=== PATIENT | male | born 1935 | race Caucasian/White ===

== ENCOUNTER → 2017-02-05 | Outpatient (CLI) | payer OTHER ==
[~2017-02-05] MED LIST: GLIM4TAB42 PO; LOVA20TA4 PO; METF-312 PO
[2017-02-05 07:53] LABS: Basophils # (auto) 0 uL; Basophils % (auto) 0.7 % (0.0-2.0); Eosinophils # (auto) 0.6 uL; Eosinophils % (auto) 10.2 % (0.0-7.0); Hematocrit 41.5 % (41.0-53.0); Hemoglobin 13.7 g/dL (13.5-17.5); Lymphocytes # (auto) 1.5 uL; Lymphocytes % (auto) 26.5 % (10.0-50.0); Mean Corpuscular Hemoglobin 30.7 pg (28.0-32.0); Mean Corpuscular Volume 93.2 fL (80.0-100.0); Mean Platelet Volume 8.6 fL (7.4-10.4); Monocytes # (auto) 0.5 uL; Monocytes % (auto) 8.6 % (0.0-12.0); Platelet Count (auto) 209 10^3/uL (140-450); Red Cell Distribution Width 13.2 % (11.6-16.0); White Blood Cell 5.6 10^3/uL (4.4-10.8)
[2017-02-05 08:26] LABS: Albumin 4.1 g/dL (3.4-5.0); Bilirubin, Total 0.7 mg/dL (0.2-1.0); Calcium 8.8 mg/dL (8.5-10.1); Potassium 4.6 mmol/L (3.5-5.1); Total Protein 7.5 g/dL (6.4-8.2)
== END | disposition home or self-care (01) ==
LOC: LAB 06:50
PROVIDERS: ATTEND Urology
DX: C61 Malignant neoplasm of prostate (principal); R35.1 Nocturia
CPT/HCPCS: 36415; 80053; 83615; 84153; 85025

== ENCOUNTER 2017-06-20 11:29 | Emergency (ER) | payer OTHER ==
[~2017-06-20] VITALS: Ht 167.6 cm; Wt 70.8 kg
[~2017-06-20 11:29] MED LIST changes: -METF-312 PO; +METF-370 PO
[2017-06-20 11:36] VITALS: BP 121/74
== END 2017-06-20 13:06 | disposition home or self-care (01) ==
LOC: ER 11:29
DX: S82.102A Unspecified fracture of upper end of left tibia, initial encounter for closed fracture (principal); E11.9 Type 2 diabetes mellitus without complications; E78.5 Hyperlipidemia, unspecified; W01.0XXA Fall on same level from slipping, tripping and stumbling without subsequent striking against object, initial encounter; Y93.89 Activity, other specified; Y99.8 Other external cause status; Y92.89 Other specified places as the place of occurrence of the external cause
CPT/HCPCS: 29505; 93971

== ENCOUNTER → 2017-08-26 | Outpatient (CLI) | payer OTHER ==
[2017-08-26 11:42] LABS: Basophils # (auto) 0 uL; Basophils % (auto) 0.8 % (0.0-2.0); Eosinophils # (auto) 0.5 uL; Eosinophils % (auto) 7.8 % (0.0-7.0); Hematocrit 38.5 % (41.0-53.0); Hemoglobin 12.9 g/dL (13.5-17.5); Lymphocytes # (auto) 1.3 uL; Lymphocytes % (auto) 21.6 % (10.0-50.0); Mean Corpuscular Hemoglobin 31.8 pg (28.0-32.0); Mean Corpuscular Hgb Conc. 33.6 g/dL (32.0-36.0); Mean Corpuscular Volume 94.8 fL (80.0-100.0); Mean Platelet Volume 7.8 fL (6.9-10.8); Monocytes # (auto) 0.5 uL; Monocytes % (auto) 7.7 % (0.0-12.0); Neutrophils # (auto) 3.7 uL; Neutrophils % (auto) 62.1 % (37.0-80.0); Nucleated Red Blood Cells % 0.1 %; Platelet Count (auto) 192 10^3/uL (140-450); Red Cell Distribution Width 12.9 % (11.8-14.3); White Blood Cell 5.9 10^3/uL (4.4-10.8)
[2017-08-26 12:05] LABS: BUN/Creatinine Ratio 18.9; Bilirubin, Total 0.4 mg/dL (0.2-1.0); Calcium 9.2 mg/dL (8.5-10.1); Potassium 4.2 mmol/L (3.5-5.1); Total Protein 7.3 g/dL (6.4-8.2)
== END | disposition home or self-care (01) ==
LOC: LAB 11:19
PROVIDERS: ATTEND Urology
DX: C61 Malignant neoplasm of prostate (principal); R53.81 Other malaise
CPT/HCPCS: 36415; 80053; 83615; 84153; 85025

== ENCOUNTER → 2017-11-11 | Outpatient (CLI) | payer OTHER ==
[2017-11-11 08:06] LABS: Basophils # (auto) 0 uL; Basophils % (auto) 0.7 % (0.0-2.0); Eosinophils # (auto) 0.3 uL; Eosinophils % (auto) 5.2 % (0.0-7.0); Hematocrit 40.6 % (41.0-53.0); Lymphocytes # (auto) 1.2 uL; Lymphocytes % (auto) 20.7 % (10.0-50.0); Mean Corpuscular Hemoglobin 32.3 pg (28.0-32.0); Mean Corpuscular Hgb Conc. 34.5 g/dL (32.0-36.0); Mean Corpuscular Volume 93.8 fL (80.0-100.0); Monocytes # (auto) 0.6 uL; Monocytes % (auto) 9.4 % (0.0-12.0); Neutrophils # (auto) 3.8 uL; Nucleated Red Blood Cells % 0.1 %; Platelet Count (auto) 197 10^3/uL (140-450); Red Blood Cells 4.33 10^6/uL (4.5-5.90); White Blood Cell 5.9 10^3/uL (4.4-10.8)
[2017-11-11 08:29] LABS: Albumin 3.9 g/dL (3.4-5.0); BUN/Creatinine Ratio 16.1; Bilirubin, Total 0.6 mg/dL (0.2-1.0); Calcium 9.2 mg/dL (8.5-10.1); Potassium 4.2 mmol/L (3.5-5.1); Total Protein 7.5 g/dL (6.4-8.2)
== END | disposition home or self-care (01) ==
LOC: LAB 07:25
PROVIDERS: ATTEND Physician Assistant
DX: C61 Malignant neoplasm of prostate (principal); I10 Essential (primary) hypertension; E11.9 Type 2 diabetes mellitus without complications; E78.2 Mixed hyperlipidemia
CPT/HCPCS: 36415; 80053; 80061; 83036; 84153; 85025

== ENCOUNTER → 2018-02-04 | Outpatient (CLI) | payer OTHER ==
[2018-02-04 08:30] LABS: Basophils # (auto) 0.1 uL; Basophils % (auto) 0.9 % (0.0-2.0); Eosinophils # (auto) 0.3 uL; Eosinophils % (auto) 5.7 % (0.0-7.0); Hematocrit 38.9 % (41.0-53.0); Hemoglobin 13.1 g/dL (13.5-17.5); Lymphocytes # (auto) 1.5 uL; Lymphocytes % (auto) 26.9 % (10.0-50.0); Mean Corpuscular Hemoglobin 31.7 pg (28.0-32.0); Mean Corpuscular Hgb Conc. 33.8 g/dL (32.0-36.0); Monocytes # (auto) 0.5 uL; Neutrophils # (auto) 3.3 uL; Neutrophils % (auto) 58.5 % (37.0-80.0); Platelet Count (auto) 183 10^3/uL (140-450); Red Blood Cells 4.13 10^6/uL (4.5-5.90); Red Cell Distribution Width 12.8 % (11.8-14.3); White Blood Cell 5.7 10^3/uL (4.4-10.8)
[2018-02-04 10:08] LABS: Albumin 3.8 g/dL (3.4-5.0); Calcium 9.1 mg/dL (8.5-10.1); Potassium 4.2 mmol/L (3.5-5.1)
[2018-02-04 10:11] LABS: BUN/Creatinine Ratio 20.2
[2018-02-04 10:24] LABS: Bilirubin, Total 0.8 mg/dL (0.2-1.0)
== END | disposition home or self-care (01) ==
LOC: LAB 08:10
PROVIDERS: ATTEND Internal Medicine
DX: C61 Malignant neoplasm of prostate (principal); R35.1 Nocturia; I10 Essential (primary) hypertension; E11.9 Type 2 diabetes mellitus without complications
CPT/HCPCS: 36415; 80053; 83615; 84153; 85025

== ENCOUNTER → 2018-08-06 | Outpatient (CLI) | payer OTHER ==
[2018-08-06 08:26] LABS: Basophils # (auto) 0 uL; Basophils % (auto) 0.8 % (0.0-2.0); Eosinophils # (auto) 0.4 uL; Hematocrit 40.1 % (41.0-53.0); Hemoglobin 13.5 g/dL (13.5-17.5); Lymphocytes # (auto) 1.1 uL; Lymphocytes % (auto) 21.3 % (10.0-50.0); Mean Corpuscular Hemoglobin 32.2 pg (28.0-32.0); Mean Corpuscular Hgb Conc. 33.7 g/dL (32.0-36.0); Mean Corpuscular Volume 95.4 fL (80.0-100.0); Monocytes # (auto) 0.4 uL; Monocytes % (auto) 8.4 % (0.0-12.0); Neutrophils # (auto) 3.2 uL; Neutrophils % (auto) 62.5 % (37.0-80.0); Nucleated Red Blood Cells % 0.1 %; Platelet Count (auto) 153 10^3/uL (140-450); Red Blood Cells 4.21 10^6/uL (4.5-5.90); Red Cell Distribution Width 12.8 % (11.8-14.3); White Blood Cell 5.2 10^3/uL (4.4-10.8)
[2018-08-06 08:49] LABS: Albumin 3.8 g/dL (3.4-5.0); Calcium 8.9 mg/dL (8.5-10.1); Potassium 4.2 mmol/L (3.5-5.1)
[2018-08-06 08:51] LABS: BUN/Creatinine Ratio 18.6
[2018-08-06 08:55] LABS: Prostate Specific Antigen 0.03 ng/mL (0.0-4.0)
== END | disposition home or self-care (01) ==
LOC: LAB 07:49
PROVIDERS: ATTEND Internal Medicine
DX: C61 Malignant neoplasm of prostate (principal); E11.9 Type 2 diabetes mellitus without complications; N52.9 Male erectile dysfunction, unspecified; R53.83 Other fatigue
CPT/HCPCS: 36415; 80053; 82306; 82607; 83036; 83615; 84153; 84403; 85025

== ENCOUNTER → 2019-02-01 | Outpatient (CLI) | payer OTHER | END | disposition home or self-care (01) | LOC: LAB 07:11 | PROVIDERS: ATTEND Urology | DX: C61 Malignant neoplasm of prostate (principal); R35.1 Nocturia | CPT/HCPCS: 84153 ==

== ENCOUNTER → 2019-03-26 | Outpatient (CLI) | payer OTHER ==
[2019-03-26 09:08] LABS: Basophils # (auto) 0 uL; Basophils % (auto) 0.6 % (0.0-2.0); Eosinophils # (auto) 0.3 uL; Eosinophils % (auto) 5.1 % (0.0-7.0); Hematocrit 41.4 % (41.0-53.0); Hemoglobin 14.1 g/dL (13.5-17.5); Lymphocytes # (auto) 1.2 uL; Lymphocytes % (auto) 18.9 % (10.0-50.0); Mean Corpuscular Hemoglobin 32.7 pg (28.0-32.0); Mean Corpuscular Hgb Conc. 33.9 g/dL (32.0-36.0); Mean Corpuscular Volume 96.4 fL (80.0-100.0); Monocytes # (auto) 0.5 uL; Neutrophils # (auto) 4.5 uL; Neutrophils % (auto) 68.4 % (37.0-80.0); Nucleated Red Blood Cells % 0.1 %; Platelet Count (auto) 147 10^3/uL (140-450); Red Cell Distribution Width 12.8 % (11.8-14.3); White Blood Cell 6.6 10^3/uL (4.4-10.8)
[2019-03-26 10:07] LABS: Albumin 3.7 g/dL (3.4-5.0); Potassium 4.6 mmol/L (3.5-5.1)
[2019-03-26 10:10] LABS: BUN/Creatinine Ratio 17.8; Bilirubin, Total 0.5 mg/dL (0.2-1.0); Total Protein 7.2 g/dL (6.4-8.2)
== END | disposition home or self-care (01) ==
LOC: LAB 08:19
PROVIDERS: ATTEND Internal Medicine
DX: C61 Malignant neoplasm of prostate (principal)
CPT/HCPCS: 36415; 80053; 83615; 84153; 85025

== ENCOUNTER → 2019-09-07 | Outpatient (CLI) | payer OTHER ==
[2019-09-07 07:42] LABS: Basophils # (auto) 0.1 uL; Basophils % (auto) 1.3 % (0.0-2.0); Eosinophils # (auto) 0.3 uL; Eosinophils % (auto) 5.2 % (0.0-7.0); Hematocrit 43.3 % (41.0-53.0); Hemoglobin 15.1 g/dL (13.5-17.5); Lymphocytes # (auto) 1.2 uL; Lymphocytes % (auto) 19.1 % (10.0-50.0); Mean Corpuscular Hemoglobin 33.1 pg (28.0-32.0); Mean Corpuscular Hgb Conc. 34.9 g/dL (32.0-36.0); Mean Corpuscular Volume 94.8 fL (80.0-100.0); Monocytes # (auto) 0.6 uL; Monocytes % (auto) 9.6 % (0.0-12.0); Neutrophils % (auto) 64.8 % (37.0-80.0); Platelet Count (auto) 126 10^3/uL (140-450); Red Blood Cells 4.57 10^6/uL (4.5-5.90); Red Cell Distribution Width 12.8 % (11.8-14.3); White Blood Cell 6.1 10^3/uL (4.4-10.8)
[2019-09-07 08:11] LABS: Albumin 4.1 g/dL (3.4-5.0); Calcium 9.1 mg/dL (8.5-10.1); Potassium 4.6 mmol/L (3.5-5.1)
[2019-09-07 08:15] LABS: BUN/Creatinine Ratio 22.6; Bilirubin, Total 0.6 mg/dL (0.2-1.0)
[2019-09-07 09:08] LABS: Prostate Specific Antigen 0.05 ng/mL (0.0-4.0)
== END | disposition home or self-care (01) ==
LOC: LAB 07:03
PROVIDERS: ATTEND Internal Medicine
DX: C61 Malignant neoplasm of prostate (principal)
CPT/HCPCS: 36415; 80053; 82607; 83615; 84153; 85025

== ENCOUNTER → 2020-02-03 | Outpatient (CLI) | payer OTHER ==
[2020-02-03 07:31] LABS: Basophils # (auto) 0 10 ^3/uL (0-0.2); Basophils % (auto) 0.7 % (0.0-2.0); Eosinophils # (auto) 0.3 10 ^3/uL (0-0.8); Eosinophils % (auto) 6.2 % (0.0-7.0); Hematocrit 39.9 % (41.0-53.0); Hemoglobin 13.2 g/dL (13.5-17.5); Lymphocytes # (auto) 1.1 10 ^3/uL (0.4-5.4); Lymphocytes % (auto) 20.6 % (10.0-50.0); Mean Corpuscular Volume 96.8 fL (80.0-100.0); Monocytes # (auto) 0.4 10 ^3/uL (0-1.3); Monocytes % (auto) 7.6 % (0.0-12.0); Neutrophils # (auto) 3.4 10 ^3/uL (1.6-8.6); Neutrophils % (auto) 64.9 % (37.0-80.0); Nucleated Red Blood Cells % 0.1 %; Platelet Count (auto) 134 10^3/uL (140-450); Red Blood Cells 4.12 10^6/uL (4.5-5.90); Red Cell Distribution Width 12.8 % (11.8-14.3); White Blood Cell 5.3 10^3/uL (4.4-10.8)
[2020-02-03 07:34] LABS: Urine Bacteria NONE SEEN /hpf (None Seen); Urine Blood Negative /uL (Negative); Urine Mucus FEW (None Seen); Urine Specific Gravity 1.025 (1.001-1.035); Urine WBC 7 /hpf (0 - 3)
[2020-02-03 08:00] LABS: Albumin 3.5 g/dL (3.4-5.0); Calcium 9.2 mg/dL (8.5-10.1); Potassium 4.4 mmol/L (3.5-5.1)
[2020-02-03 08:04] LABS: BUN/Creatinine Ratio 21.5; Bilirubin, Total 0.7 mg/dL (0.2-1.0); Total Protein 7.1 g/dL (6.4-8.2)
== END | disposition home or self-care (01) ==
LOC: LAB 07:11
PROVIDERS: ATTEND Physician Assistant
DX: E11.9 Type 2 diabetes mellitus without complications (principal); I10 Essential (primary) hypertension; E78.2 Mixed hyperlipidemia; R97.20 Elevated prostate specific antigen [PSA]
CPT/HCPCS: 36415; 80053; 80061; 81001; 83036; 85025

== ENCOUNTER → 2021-09-04 | Outpatient (CLI) | payer OTHER ==
[2021-09-04 08:30] LABS: Basophils # (auto) 0.1 10 ^3/uL (0-0.2); Basophils % (auto) 0.9 % (0.0-2.0); Eosinophils # (auto) 0.5 10 ^3/uL (0-0.8); Eosinophils % (auto) 9.2 % (0.0-7.0); Hemoglobin 13.2 g/dL (13.5-17.5); Lymphocytes # (auto) 1.3 10 ^3/uL (0.4-5.4); Lymphocytes % (auto) 21.2 % (10.0-50.0); Mean Corpuscular Hemoglobin 31.9 pg (28.0-32.0); Mean Corpuscular Hgb Conc. 32.9 g/dL (32.0-36.0); Mean Corpuscular Volume 97.1 fL (80.0-100.0); Monocytes # (auto) 0.5 10 ^3/uL (0-1.3); Monocytes % (auto) 7.9 % (0.0-12.0); Neutrophils # (auto) 3.6 10 ^3/uL (1.6-8.6); Neutrophils % (auto) 60.8 % (37.0-80.0); Nucleated Red Blood Cells % 0.1 %; Red Blood Cells 4.12 10^6/uL (4.5-5.90); Red Cell Distribution Width 13.4 % (11.8-14.3)
[2021-09-04 09:15] LABS: Albumin 3.7 g/dL (3.4-5.0); Calcium 9.4 mg/dL (8.5-10.1); Potassium 5.1 mmol/L (3.5-5.1)
[2021-09-04 09:21] LABS: BUN/Creatinine Ratio 26.5; Bilirubin, Total 0.8 mg/dL (0.2-1.0)
== END | disposition home or self-care (01) ==
LOC: LAB 08:09
PROVIDERS: ATTEND Nurse Practitioner Family
DX: E11.9 Type 2 diabetes mellitus without complications (principal); E78.2 Mixed hyperlipidemia; I10 Essential (primary) hypertension
CPT/HCPCS: 36415; 80053; 80061; 82043; 83036; 84153; 85025

== ENCOUNTER → 2021-11-21 | Outpatient (CLI) | payer OTHER ==
[2021-11-21 07:54] LABS: Basophils # (auto) 0.1 10 ^3/uL (0-0.2); Eosinophils # (auto) 0.7 10 ^3/uL (0-0.8); Eosinophils % (auto) 9.6 % (0.0-7.0); Hematocrit 35.8 % (41.0-53.0); Hemoglobin 11.9 g/dL (13.5-17.5); Lymphocytes # (auto) 0.9 10 ^3/uL (0.4-5.4); Lymphocytes % (auto) 11.9 % (10.0-50.0); Mean Corpuscular Hemoglobin 31.1 pg (28.0-32.0); Mean Corpuscular Hgb Conc. 33.4 g/dL (32.0-36.0); Mean Corpuscular Volume 93.2 fL (80.0-100.0); Monocytes # (auto) 0.5 10 ^3/uL (0-1.3); Monocytes % (auto) 7.6 % (0.0-12.0); Neutrophils % (auto) 69.9 % (37.0-80.0); Red Blood Cells 3.84 10^6/uL (4.5-5.90); Red Cell Distribution Width 14.4 % (11.8-14.3); White Blood Cell 7.2 10^3/uL (4.4-10.8)
[2021-11-21 08:00] LABS: Potassium 4.2 mmol/L (3.5-5.1)
[2021-11-21 08:10] LABS: BUN/Creatinine Ratio 21.3; Bilirubin, Total 0.7 mg/dL (0.2-1.0); Calcium 9.3 mg/dL (8.5-10.1); Total Protein 7.2 g/dL (6.4-8.2)
== END | disposition home or self-care (01) ==
LOC: LAB 07:04
PROVIDERS: ATTEND Nurse Practitioner Family
DX: E11.9 Type 2 diabetes mellitus without complications (principal); E78.2 Mixed hyperlipidemia; R35.1 Nocturia; M19.90 Unspecified osteoarthritis, unspecified site
CPT/HCPCS: 36415; 80053; 80061; 82043; 83036; 84153; 85025

== ENCOUNTER 2021-12-21 22:13 | Inpatient (IN) | payer OTHER ==
[~2021-12-21] VITALS: Ht 170.2 cm; Wt 67.7 kg
[2021-12-21] MEDS ORDERED: MORPHINE SULFATE 4 MG/ML SYR/VIAL IV ONE (23:45)
[2021-12-21] MEDS ORDERED: ONDANSETRON HCL 4 MG/2 ML VIAL IV ONE (23:45)
[2021-12-22] MEDS ORDERED: DEXTROSE (50%) 50ML SYRG IV PRN (01:00)
[2021-12-22] MEDS ORDERED: hydrALAZINE HCL 20 MG/ML VL IV PRN (01:00)
[2021-12-22] MEDS ORDERED: MORPHINE SULFATE 4 MG/ML SYR/VIAL IV PRN ×3 (01:15→14:30)
[2021-12-22] MEDS ORDERED: DOCUSATE SOD 100 MG CAP PO PRN (01:15)
[2021-12-22] MEDS ORDERED: SODIUM CHLORIDE 0.9% 1,000 ML IV SCH (01:15)
[2021-12-22] MEDS ORDERED: ONDANSETRON HCL 4 MG/2 ML VIAL IV PRN (01:15)
[2021-12-22 02:11] LABS: Basophils # (auto) 0.1 10 ^3/uL (0-0.2); Basophils % (auto) 0.7 % (0.0-2.0); Eosinophils # (auto) 0.1 10 ^3/uL (0-0.8); Eosinophils % (auto) 0.6 % (0.0-7.0); Hematocrit 31.9 % (41.0-53.0); Hemoglobin 10.7 g/dL (13.5-17.5); Lymphocytes # (auto) 0.9 10 ^3/uL (0.4-5.4); Lymphocytes % (auto) 6.7 % (10.0-50.0); Mean Corpuscular Hemoglobin 31.5 pg (28.0-32.0); Mean Corpuscular Hgb Conc. 33.6 g/dL (32.0-36.0); Mean Corpuscular Volume 93.7 fL (80.0-100.0); Monocytes # (auto) 0.7 10 ^3/uL (0-1.3); Monocytes % (auto) 4.7 % (0.0-12.0); Neutrophils # (auto) 12.3 10 ^3/uL (1.6-8.6); Neutrophils % (auto) 87.3 % (37.0-80.0); Nucleated Red Blood Cells % 0.1 %; Red Blood Cells 3.41 10^6/uL (4.5-5.90); Red Cell Distribution Width 14.9 % (11.8-14.3)
[2021-12-22 02:29] LABS: Albumin 3.2 g/dL (3.4-5.0); BUN/Creatinine Ratio 28.9; Calcium 8.8 mg/dL (8.5-10.1); Potassium 5.5 mmol/L (3.5-5.1)
[2021-12-22 02:30] LABS: INR 1.08 (0.9-1.15)
[2021-12-22 02:32] LABS: Bilirubin, Total 0.5 mg/dL (0.2-1.0); Total Protein 6.6 g/dL (6.4-8.2)
[2021-12-22] MEDS ORDERED: SODIUM ZIRCONIUM CYCL 10 GM PAK PO ONE (03:00)
[2021-12-22] MEDS ORDERED: ASPI-543 PO (04:33)
[2021-12-22 04:36] VITALS: BP 107/65
[2021-12-22 04:44] LABS: Urine Bacteria NONE SEEN /hpf (None Seen); Urine Blood Negative /uL (Negative); Urine Specific Gravity 1.025 (1.001-1.035); Urine WBC 2 /hpf (0 - 3)
[2021-12-22 05:00] VITALS: BP 107/65
[2021-12-22] MEDS ORDERED: HEPARIN SODIUM (PORCINE) 5000 UNITS/ML 1ML VIAL SC SCH (06:00)
[2021-12-22] MEDS: ACCU-CHEK COMFORT CURVE STRIP VI SCH ×3 (06:00→18:12)
[2021-12-22] MEDS: InsuLIN REG 1unit/0.01ml Soln (100units/ml) SC SCH ×3 (06:47→18:12)
[2021-12-22 08:00] VITALS: BP 97/50
[2021-12-22] MEDS: PANTOPRAZOLE 40 MG TAB PO SCH (10:08)
[2021-12-22] MEDS ORDERED: LACTATED RINGER'S 1,000 ML IV SCH (11:00)
[2021-12-22] MEDS ORDERED: ALBUTEROL SULF 2.5 MG/0.5ML(0.5%) NEB SOLN NEB PRN (11:00)
[2021-12-22] MEDS ORDERED: ceFAZolin 1GM/50ML 100 ML IV ONE (11:49)
[2021-12-22] MEDS: LIDOCAINE 1% HCL (LOCAL ANESTH.) INJ 20ML MDV ONE ×2 (12:07→13:21)
[2021-12-22] MEDS: BUPIVACAINE 0.25% INJ 50ML VIAL ONE ×2 (12:07→13:21)
[2021-12-22] MEDS ORDERED: fentaNYL CITRATE 100 MCG/2 ML VL ONE (12:45)
[2021-12-22] MEDS ORDERED: MIDAZOLAM HCL 2MG/2ML 2ml VIAL (1mg/ml) ONE (13:10)
[2021-12-22] MEDS ORDERED: CALCIUM CHLOR(10%) 100MG/ML 10ML SYRINGE IV ONE (13:26)
[2021-12-22] MEDS ORDERED: CALCIUM CHL(10%) 100MG/ML 10ML VIAL IV ONE (13:27)
[2021-12-22] MEDS ORDERED: HYDROCORTISONE SOD SUCC 100 MG/2ML INJ VIAL ONE (13:30)
[2021-12-22] MEDS ORDERED: ETOMIDATE (2MG/ML) 20ML VIAL IV ONE (13:30)
[2021-12-22] MEDS ORDERED: ONDANSETRON HCL 4 MG/2 ML VIAL ONE (13:30)
[2021-12-22] MEDS: ceFAZolin 1GM/50ML 50 ML IV SCH ×2 (14:30→20:19)
[2021-12-22] MEDS: LACTATED RINGER'S 1,000 ML IV SCH ×2 (14:30→20:19)
[2021-12-22 16:30] VITALS: BP 104/48
[2021-12-22] MEDS: SODIUM CHLOR 0.9% PF (SALINE LOCK) 10ML VIAL/SYR IV SCH (21:14)
[2021-12-22] MEDS: ATORVASTATIN 20 MG TAB PO SCH (21:14)
[2021-12-22 22:17] VITALS: BP 88/41
[2021-12-23] MEDS: InsuLIN REG 1unit/0.01ml Soln (100units/ml) SC SCH ×4 (01:34→17:57)
[2021-12-23] MEDS: ceFAZolin 1GM/50ML 50 ML IV SCH (03:25)
[2021-12-23] MEDS: ACETAMINOPHEN 325 MG TAB PO PRN (04:18)
[2021-12-23 05:15] VITALS: BP 94/47
[2021-12-23] MEDS: LACTATED RINGER'S 1,000 ML IV SCH ×3 (05:35→22:38)
[2021-12-23] MEDS: SODIUM CHLOR 0.9% PF (SALINE LOCK) 10ML VIAL/SYR IV SCH ×3 (05:59→21:46)
[2021-12-23] MEDS: ACCU-CHEK COMFORT CURVE STRIP VI SCH ×4 (06:00→17:56)
[2021-12-23 07:52] LABS: Basophils # (auto) 0 10 ^3/uL (0-0.2); Eosinophils # (auto) 0.1 10 ^3/uL (0-0.8); Lymphocytes # (auto) 1.1 10 ^3/uL (0.4-5.4); Mean Corpuscular Volume 93.5 fL (80.0-100.0); Monocytes # (auto) 0.9 10 ^3/uL (0-1.3); Neutrophils % (auto) 80.9 % (37.0-80.0)
[2021-12-23 07:55] LABS: Albumin 2.4 g/dL (3.4-5.0); Calcium 8.1 mg/dL (8.5-10.1); Magnesium 1.8 mg/dL (1.6-2.6); Potassium 4.3 mmol/L (3.5-5.1)
[2021-12-23 07:56] LABS: Basophils % (auto) 0.3 % (0.0-2.0); Eosinophils % (auto) 0.6 % (0.0-7.0); Hematocrit 20.5 % (41.0-53.0); Hemoglobin 7.3 g/dL (13.5-17.5); Mean Corpuscular Hemoglobin 33.1 pg (28.0-32.0); Mean Corpuscular Hgb Conc. 35.4 g/dL (32.0-36.0); Monocytes % (auto) 8.2 % (0.0-12.0); Red Blood Cells 2.19 10^6/uL (4.5-5.90); Red Cell Distribution Width 14.8 % (11.8-14.3); White Blood Cell 11.2 10^3/uL (4.4-10.8)
[2021-12-23 08:01] LABS: BUN/Creatinine Ratio 28.7; Bilirubin, Total 0.4 mg/dL (0.2-1.0); Phosphorus 2.8 mg/dL (2.5-4.90); Total Protein 5.2 g/dL (6.4-8.2)
[2021-12-23 08:46] VITALS: BP 96/49
[2021-12-23] MEDS ORDERED: LACTATED RINGER'S 500 ML IV ONE (09:30)
[2021-12-23] MEDS ORDERED: hydrALAZINE HCL 20 MG/ML VL IV PRN (09:30)
[2021-12-23] MEDS: ENOXAPARIN SOD 40 MG/0.4 ML SYRINGE SC SCH (09:52)
[2021-12-23] MEDS: PANTOPRAZOLE 40 MG TAB PO SCH (09:52)
[2021-12-23] MEDS: HYDROcodone-ACET 5/325MG TAB PO PRN ×2 (10:19→22:40)
[2021-12-23 12:11] LABS: Hematocrit 20.8 % (41.0-53.0); Hemoglobin 7.1 g/dL (13.5-17.5)
[2021-12-23] MEDS: INSULIN NPH Isophane (HUMAN) 1unit/0.01ml Susp(100units/ml) SC SCH ×2 (12:43→17:56)
[2021-12-23 13:31] VITALS: BP 92/40
[2021-12-23 16:38] VITALS: BP 93/49
[2021-12-23] MEDS: OLANZapine 5 MG TAB PO PRN (20:35)
[2021-12-23] MEDS: ATORVASTATIN 20 MG TAB PO SCH (21:47)
[2021-12-23 22:00] VITALS: BP 103/54
[2021-12-24] VITALS (9 sets, daily range): BP systolic 81–136; BP diastolic 46–62
[2021-12-24] MEDS: ACCU-CHEK COMFORT CURVE STRIP VI SCH ×5 (00:11→23:28)
[2021-12-24 05:51] LABS: Basophils # (auto) 0 10 ^3/uL (0-0.2); Eosinophils # (auto) 0.1 10 ^3/uL (0-0.8); Lymphocytes # (auto) 1.2 10 ^3/uL (0.4-5.4)
[2021-12-24 05:53] LABS: Basophils % (auto) 0.5 % (0.0-2.0); Eosinophils % (auto) 1.3 % (0.0-7.0); Hematocrit 18.1 % (41.0-53.0); Lymphocytes % (auto) 12.5 % (10.0-50.0); Mean Corpuscular Hemoglobin 32.8 pg (28.0-32.0); Mean Corpuscular Volume 93.5 fL (80.0-100.0); Monocytes # (auto) 0.9 10 ^3/uL (0-1.3); Monocytes % (auto) 9.1 % (0.0-12.0); Neutrophils # (auto) 7.6 10 ^3/uL (1.6-8.6); Neutrophils % (auto) 76.6 % (37.0-80.0); Red Blood Cells 1.93 10^6/uL (4.5-5.90); Red Cell Distribution Width 14.6 % (11.8-14.3); White Blood Cell 9.9 10^3/uL (4.4-10.8)
[2021-12-24] MEDS: InsuLIN REG 1unit/0.01ml Soln (100units/ml) SC SCH ×5 (06:00→23:29)
[2021-12-24] MEDS: SODIUM CHLOR 0.9% PF (SALINE LOCK) 10ML VIAL/SYR IV SCH ×3 (06:03→21:14)
[2021-12-24 06:13] LABS: Hemoglobin 6.3 g/dL (13.5-17.5)
[2021-12-24 06:16] LABS: Calcium 8.1 mg/dL (8.5-10.1); Magnesium 1.9 mg/dL (1.6-2.6); Potassium 3.7 mmol/L (3.5-5.1)
[2021-12-24 06:29] LABS: BUN/Creatinine Ratio 25.6
[2021-12-24] MEDS: LACTATED RINGER'S 1,000 ML IV SCH (06:45)
[2021-12-24] MEDS: INSULIN NPH Isophane (HUMAN) 1unit/0.01ml Susp(100units/ml) SC SCH ×2 (09:00→17:30)
[2021-12-24] MEDS: OLANZapine 5 MG TAB PO PRN (09:07)
[2021-12-24] MEDS: PANTOPRAZOLE 40 MG TAB PO SCH (09:07)
[2021-12-24] MEDS: ENOXAPARIN SOD 40 MG/0.4 ML SYRINGE SC SCH (09:07)
[2021-12-24 14:00] LABS: Hematocrit 23.2 % (41.0-53.0)
[2021-12-24] MEDS: ATORVASTATIN 20 MG TAB PO SCH (21:14)
[2021-12-24] MEDS: HALOPERIDOL LACTATE 5 MG/ML INJ VIAL IM PRN (23:28)
[2021-12-25 05:00] VITALS: BP 130/73
[2021-12-25] MEDS: SODIUM CHLOR 0.9% PF (SALINE LOCK) 10ML VIAL/SYR IV SCH ×3 (05:07→22:04)
[2021-12-25] MEDS: ACCU-CHEK COMFORT CURVE STRIP VI SCH ×3 (05:19→17:13)
[2021-12-25] MEDS: InsuLIN REG 1unit/0.01ml Soln (100units/ml) SC SCH ×3 (05:20→17:12)
[2021-12-25 06:11] LABS: Basophils # (auto) 0 10 ^3/uL (0-0.2); Basophils % (auto) 0.4 % (0.0-2.0); Eosinophils # (auto) 0.1 10 ^3/uL (0-0.8); Neutrophils # (auto) 7.9 10 ^3/uL (1.6-8.6)
[2021-12-25 06:14] LABS: Eosinophils % (auto) 1.1 % (0.0-7.0); Hematocrit 22.5 % (41.0-53.0); Lymphocytes # (auto) 0.8 10 ^3/uL (0.4-5.4); Lymphocytes % (auto) 8.5 % (10.0-50.0); Mean Corpuscular Hemoglobin 32.9 pg (28.0-32.0); Mean Corpuscular Hgb Conc. 35.5 g/dL (32.0-36.0); Mean Corpuscular Volume 92.6 fL (80.0-100.0); Monocytes # (auto) 0.9 10 ^3/uL (0-1.3); Monocytes % (auto) 8.9 % (0.0-12.0); Neutrophils % (auto) 81.1 % (37.0-80.0); Red Blood Cells 2.43 10^6/uL (4.5-5.90); Red Cell Distribution Width 15.3 % (11.8-14.3); White Blood Cell 9.7 10^3/uL (4.4-10.8)
[2021-12-25 06:44] LABS: BUN/Creatinine Ratio 23.6; Calcium 8.3 mg/dL (8.5-10.1); Magnesium 2.1 mg/dL (1.6-2.6); Potassium 3.8 mmol/L (3.5-5.1)
[2021-12-25] MEDS: INSULIN NPH Isophane (HUMAN) 1unit/0.01ml Susp(100units/ml) SC SCH ×2 (08:19→17:30)
[2021-12-25] MEDS: PANTOPRAZOLE 40 MG TAB PO SCH (09:51)
[2021-12-25] MEDS: ENOXAPARIN SOD 40 MG/0.4 ML SYRINGE SC SCH (09:51)
[2021-12-25] MEDS: HALOPERIDOL LACTATE 5 MG/ML INJ VIAL IM PRN ×2 (12:03→22:05)
[2021-12-25] MEDS: IBUPROFEN 400 MG TAB PO PRN (17:14)
[2021-12-25 22:00] VITALS: BP 123/62
[2021-12-25] MEDS: ATORVASTATIN 20 MG TAB PO SCH (22:04)
[2021-12-26] MEDS: ACCU-CHEK COMFORT CURVE STRIP VI SCH ×4 (00:04→18:04)
[2021-12-26 05:01] VITALS: BP 112/60
[2021-12-26 05:46] LABS: Eosinophils # (auto) 0.4 10 ^3/uL (0-0.8); Hemoglobin 7.8 g/dL (13.5-17.5); Lymphocytes # (auto) 1.2 10 ^3/uL (0.4-5.4); White Blood Cell 6.9 10^3/uL (4.4-10.8)
[2021-12-26 05:48] LABS: Basophils # (auto) 0 10 ^3/uL (0-0.2); Basophils % (auto) 0.7 % (0.0-2.0); Eosinophils % (auto) 5.9 % (0.0-7.0); Hematocrit 22.5 % (41.0-53.0); Lymphocytes % (auto) 17.2 % (10.0-50.0); Mean Corpuscular Hemoglobin 32.3 pg (28.0-32.0); Mean Corpuscular Hgb Conc. 34.4 g/dL (32.0-36.0); Mean Corpuscular Volume 93.9 fL (80.0-100.0); Monocytes # (auto) 0.6 10 ^3/uL (0-1.3); Monocytes % (auto) 9.4 % (0.0-12.0); Neutrophils # (auto) 4.6 10 ^3/uL (1.6-8.6); Neutrophils % (auto) 66.8 % (37.0-80.0); Red Cell Distribution Width 14.9 % (11.8-14.3)
[2021-12-26] MEDS: InsuLIN REG 1unit/0.01ml Soln (100units/ml) SC SCH ×4 (06:00→18:04)
[2021-12-26 06:22] LABS: Potassium 3.7 mmol/L (3.5-5.1)
[2021-12-26 06:23] LABS: BUN/Creatinine Ratio 32.5; Calcium 8.2 mg/dL (8.5-10.1)
[2021-12-26] MEDS: SODIUM CHLOR 0.9% PF (SALINE LOCK) 10ML VIAL/SYR IV SCH ×3 (06:25→22:06)
[2021-12-26] MEDS: INSULIN NPH Isophane (HUMAN) 1unit/0.01ml Susp(100units/ml) SC SCH ×2 (08:00→18:00)
[2021-12-26 09:00] VITALS: BP 94/58
[2021-12-26] MEDS ORDERED: ERGOCALCIFEROL 50,000 UNIT(1.25MG) CAP PO SCH (10:15)
[2021-12-26] MEDS: ENOXAPARIN SOD 40 MG/0.4 ML SYRINGE SC SCH (10:21)
[2021-12-26] MEDS: PANTOPRAZOLE 40 MG TAB PO SCH (10:21)
[2021-12-26] MEDS: IBUPROFEN 400 MG TAB PO PRN (10:26)
[2021-12-26 13:00] VITALS: BP 93/53
[2021-12-26 17:00] VITALS: BP 111/72
[2021-12-26 22:00] VITALS: BP 111/63
[2021-12-26] MEDS: ATORVASTATIN 20 MG TAB PO SCH (22:06)
[2021-12-27] MEDS: ACCU-CHEK COMFORT CURVE STRIP VI SCH ×3 (00:19→11:55)
[2021-12-27] MEDS: IBUPROFEN 400 MG TAB PO PRN (03:24)
[2021-12-27 05:00] VITALS: BP 152/95
[2021-12-27] MEDS: SODIUM CHLOR 0.9% PF (SALINE LOCK) 10ML VIAL/SYR IV SCH ×2 (05:45→11:55)
[2021-12-27] MEDS: InsuLIN REG 1unit/0.01ml Soln (100units/ml) SC SCH ×3 (05:52→11:54)
[2021-12-27 07:07] LABS: Hematocrit 22.2 % (41.0-53.0); Hemoglobin 7.8 g/dL (13.5-17.5)
[2021-12-27 08:00] VITALS: BP 121/60
[2021-12-27] MEDS: INSULIN NPH Isophane (HUMAN) 1unit/0.01ml Susp(100units/ml) SC SCH (08:00)
[2021-12-27 08:47] VITALS: BP 121/60
[2021-12-27] MEDS: PANTOPRAZOLE 40 MG TAB PO SCH (09:08)
[2021-12-27] MEDS: ENOXAPARIN SOD 40 MG/0.4 ML SYRINGE SC SCH (09:08)
[2021-12-27] MEDS: ACETAMINOPHEN 325 MG TAB PO PRN (09:16)
[2021-12-27 12:30] VITALS: BP 101/51
[2021-12-27 14:38] VITALS: BP 121/60
[2021-12-27] MEDS ORDERED: ERGO1CAP23 PO (15:51)
[2021-12-27] MEDS ORDERED: APIX2.5T PO (15:51)
[2021-12-27 17:28] VITALS: BP 122/60
== END 2021-12-27 17:40 | disposition home health service (06) | DRG 480 ==
LOC: ER 22:13 → EDBD 22:13 → OVERFLOW 12-22 01:03 → WEST WING 12-22 04:05 → TELE-WESTW 12-22 14:44
PROVIDERS: ADMIT Internal Medicine; ATTEND Internal Medicine
PROC: BW1C1ZZ Fluoroscopy of Lower Extremity using Low Osmolar Contrast (ICD-10-PCS; 2021-12-22)
PROC: 0QS604Z Reposition Right Upper Femur with Internal Fixation Device, Open Approach (ICD-10-PCS; principal; 2021-12-22 12:48)
PROC: 30233N1 Transfusion of Nonautologous Red Blood Cells into Peripheral Vein, Percutaneous Approach (ICD-10-PCS; 2021-12-24)
DX: S72.21XA Displaced subtrochanteric fracture of right femur, initial encounter for closed fracture (principal); G92.8 Other toxic encephalopathy; I95.81 Postprocedural hypotension; E11.65 Type 2 diabetes mellitus with hyperglycemia; E87.5 Hyperkalemia; Z20.822 Contact with and (suspected) exposure to COVID-19; R01.1 Cardiac murmur, unspecified; Z66 Do not resuscitate; I10 Essential (primary) hypertension; D50.0 Iron deficiency anemia secondary to blood loss (chronic); E78.00 Pure hypercholesterolemia, unspecified; W18.39XA Other fall on same level, initial encounter; E78.5 Hyperlipidemia, unspecified; H91.90 Unspecified hearing loss, unspecified ear; Z83.3 Family history of diabetes mellitus; Z87.891 Personal history of nicotine dependence; Z82.49 Family history of ischemic heart disease and other diseases of the circulatory system; Y93.89 Activity, other specified; Y99.8 Other external cause status; Y92.098 Other place in other non-institutional residence as the place of occurrence of the external cause
CPT/HCPCS: 36415; 51702; 70450; 71045; 73502; 76000; 80048; 80053; 80061; 81001; 82306; 82962; 83036; 83735; 84100; 84443; 85014; 85018; 85025; 85610; 86850; 86900; 86901; 86920; 93005; 93306; 96361; 96374; 96375; 97110; 97116; 97163; 97530; A4565; C1713; C1769; G0378; J0690; J1815; J2001; J2250; J2405; J3490

== ENCOUNTER → 2022-12-10 | Outpatient (CLI) | payer OTHER ==
[~2022-12-10] MED LIST changes: +APIX2.5T PO; +ASPI-543 PO; +ERGO1CAP23 PO
[2022-12-10 08:15] LABS: Basophils # (auto) 0.1 10 ^3/uL (0-0.2); Basophils % (auto) 0.7 % (0.0-2.0); Eosinophils # (auto) 0.6 10 ^3/uL (0-0.8); Eosinophils % (auto) 7.3 % (0.0-7.0); Hematocrit 37.9 % (41.0-53.0); Hemoglobin 13.2 g/dL (13.5-17.5); Lymphocytes # (auto) 1.5 10 ^3/uL (0.4-5.4); Lymphocytes % (auto) 20.5 % (10.0-50.0); Mean Corpuscular Hemoglobin 33.3 pg (28.0-32.0); Mean Corpuscular Hgb Conc. 34.9 g/dL (32.0-36.0); Mean Corpuscular Volume 95.3 fL (80.0-100.0); Monocytes # (auto) 0.6 10 ^3/uL (0-1.3); Monocytes % (auto) 7.8 % (0.0-12.0); Neutrophils # (auto) 4.8 10 ^3/uL (1.6-8.6); Neutrophils % (auto) 63.7 % (37.0-80.0); Red Blood Cells 3.98 10^6/uL (4.5-5.90); Red Cell Distribution Width 13.4 % (11.8-14.3); White Blood Cell 7.5 10^3/uL (4.4-10.8)
[2022-12-10 08:36] LABS: Albumin 4.1 g/dL (3.4-5.0); Calcium 9.5 mg/dL (8.5-10.1); Potassium 4.1 mmol/L (3.5-5.1)
[2022-12-10 08:41] LABS: BUN/Creatinine Ratio 29.2; Bilirubin, Total 0.9 mg/dL (0.2-1.0); Total Protein 7.2 g/dL (6.4-8.2)
== END | disposition home or self-care (01) ==
LOC: LAB 07:40
PROVIDERS: ATTEND Nurse Practitioner Family
DX: Z00.00 Encounter for general adult medical examination without abnormal findings (principal); I10 Essential (primary) hypertension; E78.5 Hyperlipidemia, unspecified; E11.9 Type 2 diabetes mellitus without complications
CPT/HCPCS: 36415; 80053; 80061; 82043; 83036; 84439; 84443; 85025

== ENCOUNTER 2023-09-13 10:39 | Inpatient (IN) | payer OTHER ==
[~2023-09-13] VITALS: Ht 155 cm; Wt 61.0 kg
[2023-09-13] VITALS (10 sets, daily range): BP systolic 91–116; BP diastolic 44–62; PULSE 91–120; RESP 16–36; O2SAT 93–100
[2023-09-13 11:23] LABS: Basophils # (auto) 0 10 ^3/uL (0-0.2); Basophils % (auto) 0.1 % (0.0-2.0); Eosinophils # (auto) 0 10 ^3/uL (0-0.8); Eosinophils % (auto) 0.1 % (0.0-7.0); Hematocrit 32.7 % (41.0-53.0); Hemoglobin 10.4 g/dL (13.5-17.5); Lymphocytes # (auto) 0.4 10 ^3/uL (0.4-5.4); Lymphocytes % (auto) 2.4 % (10.0-50.0); Mean Corpuscular Hemoglobin 30.9 pg (28.0-32.0); Mean Corpuscular Hgb Conc. 31.7 g/dL (32.0-36.0); Mean Corpuscular Volume 97.6 fL (80.0-100.0); Monocytes # (auto) 0.9 10 ^3/uL (0-1.3); Neutrophils # (auto) 15.8 10 ^3/uL (1.6-8.6); Neutrophils % (auto) 92.4 % (37.0-80.0); Red Blood Cells 3.35 10^6/uL (4.5-5.90); Red Cell Distribution Width 14.4 % (11.8-14.3); White Blood Cell 17.1 10^3/uL (4.4-10.8)
[2023-09-13 11:39] LABS: Alanine Aminotransferase 95 U/L (7-40); Alkaline Phosphatase 73 U/L (46-116); Anion Gap 23 (5-15); Aspartate Aminotransferase 127 U/L (13-40); BUN/Creatinine Ratio 16.9 (10.0-20.0); Blood Alcohol < 3.0 mg/dL (<10); Blood Urea Nitrogen 52 mg/dL (9-23); Calcium 9.2 mg/dL (8.7-10.4); Carbon Dioxide 12 mmol/L (20-30); Chloride 101 mmol/L (98-107); Glucose 167 mg/dL (74-106); INR 1.34 (0.9-1.15); Magnesium 1.6 mg/dL (1.6-2.6); Prothrombin Time 13.8 sec (9.3-11.8); Sodium 136 mmol/L (136-145)
[2023-09-13 11:40] LABS: Total Protein 6.1 g/dL (5.7-8.2)
[2023-09-13] MEDS ORDERED: SODIUM CHLORIDE 0.9% 2,000 ML IV ONE (11:45)
[2023-09-13 11:55] LABS: Lactic Acid w/Reflex 11.3 mmol/L (0.4-2.0)
[2023-09-13] MEDS ORDERED: ROCURONIUM 10MG/ML 10ML VIAL IV ONE ×2 (12:10→12:30)
[2023-09-13] MEDS ORDERED: ETOMIDATE (2MG/ML) 20ML VIAL IV ONE ×2 (12:10→12:30)
[2023-09-13] MEDS ORDERED: NOREPINEPHRINE 8 MG/250ML KIT 250 ML IV ONE (12:13)
[2023-09-13] MEDS ORDERED: NOREPINEPHRINE 8 MG/250ML KIT 250 ML IV SCH (12:15)
[2023-09-13] MEDS: NOREPINEPHRINE 8 MG/250ML KIT 250 ML IV SCH ×2 (12:19→21:43)
[2023-09-13] MEDS ORDERED: MIDAZOLAM DRIP 50 mg/50mL 50 ML IV ONE (12:21)
[2023-09-13] MEDS: MIDAZOLAM DRIP 50 mg/50mL 50 ML IV SCH ×2 (12:30→22:10)
[2023-09-13 14:16] LABS: Base Excess -17.8 mmol/L (-2.0-2.0)
[2023-09-13 15:47] LABS: Urine Bacteria MOD /hpf (None Seen); Urine Blood 3+ /uL (Negative); Urine Clarity CLOUDY (Clear); Urine Color Yellow (Yellow); Urine Protein, UAD 3+ (Negative); Urine Specific Gravity 1.014 (1.001-1.035); Urine Urobilinogen Normal (Negative); Urine WBC 241 /hpf (0 - 3); Urine WBC Clumps PRESENT /hpf (None Seen)
[2023-09-13 15:51] LABS: Amphetamine Screen, Urine Neg (NEGATIVE); Barbiturate Scree,Urine Neg (NEGATIVE); Benzodiazephine Screen, Urine Neg (NEGATIVE); Cannabinoid Screen, Urine Neg (NEGATIVE); Cocaine Screen, Urine Neg (NEGATIVE); Opiate Scree,Urine Neg (NEGATIVE); Phencyclidine Screen, Urine Neg (NEGATIVE)
[2023-09-13] MEDS: SODIUM CHLORIDE 0.9% 1,000 ML IV SCH (16:00)
[2023-09-13] MEDS ORDERED: PANTOPRAZOLE 40 MG/10 ML VIAL INJ IV ONE (16:00)
[2023-09-13] MEDS ORDERED: MORPHINE SULFATE INJ 2 MG/ml SYRG IV PRN (16:00)
[2023-09-13] MEDS: VASOPRESSIN 20 UNITS in SODIUM CHL 0.9% 99 ML IV SCH ×2 (16:00→19:53)
[2023-09-13] MEDS ORDERED: NITROGLYCERIN 0.4 MG SL TAB SL PRN (16:00)
[2023-09-13] MEDS ORDERED: SODIUM BICARBONATE 8.4 % INJ 50ML VIAL IV ONE ×2 (16:00→16:30)
[2023-09-13] MEDS ORDERED: SODIUM CHLORIDE 0.9% 1,000 ML IV ONE (16:00)
[2023-09-13] MEDS ORDERED: PIPERACILLIN-TAZOB 2.25GM 50 ML IV ONE (16:00)
[2023-09-13] MEDS ORDERED: VANCOMYCIN 1GM/200ML 250 ML IV ONE (16:00)
[2023-09-13] MEDS ORDERED: DEXTROSE (50%) 50ML SYRG IV PRN (16:15)
[2023-09-13] MEDS ORDERED: VANCOMYCIN PER PHARMACY 0 MG IV SCH (16:15)
[2023-09-13] MEDS ORDERED: SODIUM BICARBONATE 50ML VIAL 150 ML in D5W 5% 1,000 ML IV ONE (16:30)
[2023-09-13] MEDS: fentaNYL Drip 2500mCg/250mlNS 250 ML IV SCH (16:35)
[2023-09-13] MEDS: ACCU-CHEK COMFORT CURVE STRIP VI SCH ×2 (17:00→22:10)
[2023-09-13] MEDS: InsuLIN REG 1unit/0.01ml Soln (100units/ml) SC SCH ×2 (17:00→22:13)
[2023-09-13] MEDS ORDERED: methylPREDNISolone SOD SUCC 125 MG/2 ML VL IV ONE (17:30)
[2023-09-13 17:40] LABS: Triglycerides 115 mg/dL (< 150)
[2023-09-13 17:41] LABS: LDL Cholesterol 31 mg/dL (< 100)
[2023-09-13 17:42] LABS: Cholesterol 94 mg/dL (< 200); HDL Cholesterol 32 mg/dL (40-59)
[2023-09-13] MEDS: ALBUTEROL MEDNEB 2.5 mg/3ml NEB NEB SCH ×2 (18:13→22:11)
[2023-09-13 18:15] LABS: Base Excess -8.2 mmol/L (-2.0-2.0)
[2023-09-13] MEDS ORDERED: VASOPRESSIN 20 UNIT/ML ONE (19:41)
[2023-09-13] MEDS: methylPREDNISolone SOD SUCC 40 MG/ML VL IV SCH (22:00)
[2023-09-14] VITALS (105 sets, daily range): BP systolic 89–118; BP diastolic 36–58; PULSE 83–103; RESP 9–22; TEMP 97.2–98.4; O2SAT 92–100
[2023-09-14] MEDS: ALBUTEROL MEDNEB 2.5 mg/3ml NEB NEB SCH ×6 (02:13→22:37)
[2023-09-14 02:33] LABS: Hematocrit 28.8 % (41.0-53.0); Hemoglobin 9.4 g/dL (13.5-17.5); Mean Corpuscular Hgb Conc. 32.6 g/dL (32.0-36.0); Red Blood Cells 2.94 10^6/uL (4.5-5.90); Red Cell Distribution Width 14.9 % (11.8-14.3); White Blood Cell 25.3 10^3/uL (4.4-10.8)
[2023-09-14 02:41] LABS: Alanine Aminotransferase 860 U/L (7-40); Albumin 3.3 g/dL (3.2-4.8); Alkaline Phosphatase 61 U/L (46-116); Anion Gap 15 (5-15); BUN/Creatinine Ratio 14.4 (10.0-20.0); Blood Urea Nitrogen 48 mg/dL (9-23); Calcium 7.4 mg/dL (8.7-10.4); Carbon Dioxide 18 mmol/L (20-30); Chloride 101 mmol/L (98-107); Potassium 4.8 mmol/L (3.5-5.1); Sodium 134 mmol/L (136-145)
[2023-09-14 02:42] LABS: Bilirubin, Total 2.6 mg/dL (0.2-1.0); Total Protein 5.3 g/dL (5.7-8.2)
[2023-09-14 02:52] LABS: Aspartate Aminotransferase 1346 U/L (13-40)
[2023-09-14 03:19] LABS: Basophils % (manual) 0 (0.0-2.0); Blast Cells 0; Eosinophils % (manual) 0 (0-7); Promyelocytes % 0; Reactive Lymphocytes 0
[2023-09-14 03:20] LABS: Lactic Acid w/Reflex 6.9 mmol/L (0.4-2.0)
[2023-09-14 03:34] LABS: Glucose 411 mg/dL (74-106)
[2023-09-14] MEDS: SODIUM CHLORIDE 0.9% 1,000 ML IV SCH ×3 (03:48→17:13)
[2023-09-14] MEDS: VASOPRESSIN 20 UNITS in SODIUM CHL 0.9% 99 ML IV SCH (06:05)
[2023-09-14] MEDS: MIDAZOLAM DRIP 50 mg/50mL 50 ML IV SCH ×3 (06:05→22:18)
[2023-09-14] MEDS: ACCU-CHEK COMFORT CURVE STRIP VI SCH ×4 (06:06→22:18)
[2023-09-14] MEDS: NOREPINEPHRINE 8 MG/250ML KIT 250 ML IV SCH ×2 (06:06→12:51)
[2023-09-14] MEDS: InsuLIN REG 1unit/0.01ml Soln (100units/ml) SC SCH ×4 (06:10→22:29)
[2023-09-14 07:24] LABS: Base Excess -8.4 mmol/L (-2.0-2.0)
[2023-09-14 08:36] LABS: Band Neutrophils % (manual) 49; Lymphocytes % (manual) 1 (10.0-50.0); Metamyelocytes % 6; Monocytes % (manual) 2 (0-12); Myelocytes % 5
[2023-09-14 08:37] LABS: Platelet Estimate Decreased
[2023-09-14] MEDS: PANTOPRAZOLE 40 MG/10 ML VIAL INJ IV SCH (09:11)
[2023-09-14] MEDS: methylPREDNISolone SOD SUCC 40 MG/ML VL IV SCH ×2 (09:11→22:18)
[2023-09-14] MEDS: CEFEPIME 1GM/ 50ML 50 ML IV SCH (09:11)
[2023-09-14] MEDS: ASPirin 81 mg TAB PO SCH (09:11)
[2023-09-14] MEDS: fentaNYL Drip 2500mCg/250mlNS 250 ML IV SCH ×2 (12:30→17:10)
[2023-09-14 12:41] LABS: Lactic Acid w/Reflex 3.8 mmol/L (0.4-2.0)
[2023-09-14] MEDS ORDERED: BUMETANIDE 2.5mg/10ml (0.25 mg/ml) INJ IV ONE (14:00)
[2023-09-14 18:54] LABS: Lactic Acid w/Reflex 2.8 mmol/L (0.4-2.0)
[2023-09-14] MEDS: SILVER SULFADIAZINE 1 % TOPICAL CREAM 50GM TOP SCH (22:17)
[2023-09-14] MEDS: MUPIROCIN 2% OINT 15gm or 22gm FOR MRSA NARES EACHNOSTRI SCH (22:17)
[2023-09-15] VITALS (109 sets, daily range): BP systolic 83–118; BP diastolic 39–58; PULSE 91–108; RESP 11–28; TEMP 97.2–98.4; O2SAT 91–99
[2023-09-15] MEDS: NOREPINEPHRINE 8 MG/250ML KIT 250 ML IV SCH ×4 (00:25→17:04)
[2023-09-15] MEDS: SODIUM CHLORIDE 0.9% 1,000 ML IV SCH ×2 (00:46→09:40)
[2023-09-15] MEDS: VASOPRESSIN 20 UNITS in SODIUM CHL 0.9% 99 ML IV SCH ×3 (01:21→23:35)
[2023-09-15] MEDS: ALBUTEROL MEDNEB 2.5 mg/3ml NEB NEB SCH ×6 (02:13→21:47)
[2023-09-15 04:00] LABS: Hematocrit 28.4 % (41.0-53.0); Hemoglobin 9.3 g/dL (13.5-17.5); Mean Corpuscular Hemoglobin 31.2 pg (28.0-32.0); Mean Corpuscular Hgb Conc. 32.7 g/dL (32.0-36.0); Mean Corpuscular Volume 95.2 fL (80.0-100.0); Red Blood Cells 2.98 10^6/uL (4.5-5.90); Red Cell Distribution Width 14.5 % (11.8-14.3); White Blood Cell 26.9 10^3/uL (4.4-10.8)
[2023-09-15 04:06] LABS: Albumin 3.4 g/dL (3.2-4.8); Alkaline Phosphatase 83 U/L (46-116); Anion Gap 13 (5-15); BUN/Creatinine Ratio 17.1 (10.0-20.0); Calcium 7.1 mg/dL (8.7-10.4); Carbon Dioxide 20 mmol/L (20-30); Chloride 103 mmol/L (98-107); Potassium 4.4 mmol/L (3.5-5.1); Sodium 136 mmol/L (136-145)
[2023-09-15 04:07] LABS: Bilirubin, Total 2.8 mg/dL (0.2-1.0); Total Protein 5.7 g/dL (5.7-8.2)
[2023-09-15 04:09] LABS: Basophils % (manual) 0 (0.0-2.0); Blast Cells 0; Eosinophils % (manual) 0 (0-7); Metamyelocytes % 0; Myelocytes % 0; Promyelocytes % 0; Reactive Lymphocytes 0
[2023-09-15 04:18] LABS: Aspartate Aminotransferase 2416 U/L (13-40)
[2023-09-15 04:22] LABS: Alanine Aminotransferase 2384 U/L (7-40); Blood Urea Nitrogen 68 mg/dL (9-23); Glucose 272 mg/dL (74-106)
[2023-09-15] MEDS: MIDAZOLAM DRIP 50 mg/50mL 50 ML IV SCH ×3 (05:01→17:03)
[2023-09-15 05:48] LABS: INR 1.43 (0.9-1.15); Prothrombin Time 14.7 sec (9.3-11.8)
[2023-09-15] MEDS: ACCU-CHEK COMFORT CURVE STRIP VI SCH ×4 (06:08→22:02)
[2023-09-15] MEDS: InsuLIN REG 1unit/0.01ml Soln (100units/ml) SC SCH ×4 (06:15→22:13)
[2023-09-15 07:42] LABS: Base Excess -9.4 mmol/L (-2.0-2.0)
[2023-09-15 07:44] LABS: Band Neutrophils % (manual) 9; Lymphocytes % (manual) 4 (10.0-50.0); Monocytes % (manual) 4 (0-12); Platelet Estimate Decreased
[2023-09-15] MEDS: PANTOPRAZOLE 40 MG/10 ML VIAL INJ IV SCH (09:02)
[2023-09-15] MEDS: methylPREDNISolone SOD SUCC 40 MG/ML VL IV SCH (09:02)
[2023-09-15] MEDS: CEFEPIME 1GM/ 50ML 50 ML IV SCH (09:02)
[2023-09-15] MEDS: SILVER SULFADIAZINE 1 % TOPICAL CREAM 50GM TOP SCH ×2 (09:02→22:05)
[2023-09-15] MEDS: ASPirin 81 mg TAB PO SCH (09:02)
[2023-09-15] MEDS: MUPIROCIN 2% OINT 15gm or 22gm FOR MRSA NARES EACHNOSTRI SCH ×2 (09:03→22:05)
[2023-09-15 09:23] LABS: Hepatitis B Surface Antigen Negative (Negative)
[2023-09-15 09:43] LABS: Hepatitis A Ab IgM Negative
[2023-09-15 09:44] LABS: Hepatitis B Core IgM Negative; Hepatitis C Antibody Negative (Negative)
[2023-09-15] MEDS ORDERED: CEFTRIAXONE SODIUM 2 GM in D5W 5% 100 ML IV ONE (15:30)
[2023-09-15] MEDS: fentaNYL Drip 2500mCg/250mlNS 250 ML IV SCH (16:03)
[2023-09-15] MEDS ORDERED: FUROSEMIDE 100 MG/10ML VIAL IV SCH (18:00)
[2023-09-16] VITALS (111 sets, daily range): BP systolic 61–154; BP diastolic 33–67; PULSE 83–100; RESP 14–24; TEMP 95.7–99.8; O2SAT 89–96
[2023-09-16] MEDS: NOREPINEPHRINE 8 MG/250ML KIT 250 ML IV SCH ×4 (00:30→17:27)
[2023-09-16] MEDS: ALBUTEROL MEDNEB 2.5 mg/3ml NEB NEB SCH ×6 (01:51→22:44)
[2023-09-16 04:28] LABS: Basophils # (auto) 0 10 ^3/uL (0-0.2); Basophils % (auto) 0.2 % (0.0-2.0); Eosinophils # (auto) 0.2 10 ^3/uL (0-0.8); Eosinophils % (auto) 0.9 % (0.0-7.0); Hematocrit 30.3 % (41.0-53.0); Hemoglobin 9.8 g/dL (13.5-17.5); Lymphocytes # (auto) 0.3 10 ^3/uL (0.4-5.4); Lymphocytes % (auto) 1.5 % (10.0-50.0); Mean Corpuscular Hemoglobin 31.2 pg (28.0-32.0); Mean Corpuscular Hgb Conc. 32.5 g/dL (32.0-36.0); Mean Corpuscular Volume 96.1 fL (80.0-100.0); Monocytes # (auto) 1.2 10 ^3/uL (0-1.3); Monocytes % (auto) 5.1 % (0.0-12.0); Neutrophils # (auto) 22.1 10 ^3/uL (1.6-8.6); Neutrophils % (auto) 92.3 % (37.0-80.0); Nucleated Red Blood Cells % 0.1 %; Red Blood Cells 3.15 10^6/uL (4.5-5.90); Red Cell Distribution Width 14.7 % (11.8-14.3); White Blood Cell 23.9 10^3/uL (4.4-10.8)
[2023-09-16 04:55] LABS: Albumin 3.2 g/dL (3.2-4.8); Alkaline Phosphatase 111 U/L (46-116); Anion Gap 12 (5-15); Aspartate Aminotransferase 697 U/L (13-40); Blood Urea Nitrogen 76 mg/dL (9-23); Calcium 6.9 mg/dL (8.7-10.4); Carbon Dioxide 19 mmol/L (20-30); Chloride 105 mmol/L (98-107); Glucose 193 mg/dL (74-106); Potassium 4.1 mmol/L (3.5-5.1); Sodium 136 mmol/L (136-145)
[2023-09-16 04:56] LABS: Bilirubin, Total 2.3 mg/dL (0.2-1.0); Total Protein 5.5 g/dL (5.7-8.2)
[2023-09-16 05:11] LABS: Alanine Aminotransferase 1617 U/L (7-40)
[2023-09-16] MEDS: MIDAZOLAM DRIP 50 mg/50mL 50 ML IV SCH ×3 (05:18→17:27)
[2023-09-16] MEDS: ACCU-CHEK COMFORT CURVE STRIP VI SCH ×5 (06:52→22:24)
[2023-09-16] MEDS: InsuLIN REG 1unit/0.01ml Soln (100units/ml) SC SCH ×4 (06:55→22:24)
[2023-09-16 08:26] LABS: Base Excess -8.1 mmol/L (-2.0-2.0)
[2023-09-16] MEDS: ASPirin 81 mg TAB PO SCH (09:18)
[2023-09-16] MEDS: SILVER SULFADIAZINE 1 % TOPICAL CREAM 50GM TOP SCH ×2 (09:19→22:24)
[2023-09-16] MEDS: PANTOPRAZOLE 40 MG/10 ML VIAL INJ IV SCH (09:19)
[2023-09-16] MEDS: CEFTRIAXONE SODIUM 2 GM in D5W 5% 100 ML IV SCH (09:20)
[2023-09-16] MEDS: MUPIROCIN 2% OINT 15gm or 22gm FOR MRSA NARES EACHNOSTRI SCH ×2 (09:20→22:24)
[2023-09-16] MEDS ORDERED: FUROSEMIDE 100 MG/10ML VIAL IV SCH (10:00)
[2023-09-16] MEDS: VASOPRESSIN 20 UNITS in SODIUM CHL 0.9% 99 ML IV SCH ×2 (10:42→21:49)
[2023-09-16] MEDS: fentaNYL Drip 2500mCg/250mlNS 250 ML IV SCH (15:03)
[2023-09-16] MEDS ORDERED: DEXTROSE (50%) 50ML SYRG IV PRN (15:45)
[2023-09-16] MEDS: SODIUM CHLORIDE 0.9% 1,000 ML IV SCH ×2 (15:45→19:00)
[2023-09-16] MEDS ORDERED: VANCOMYCIN PER PHARMACY 0 MG IV SCH (17:00)
[2023-09-16] MEDS ORDERED: VANCOMYCIN 1GM/200ML 250 ML IV ONE (17:00)
[2023-09-17] VITALS (111 sets, daily range): BP systolic 83–151; BP diastolic 35–69; PULSE 75–144; RESP 14–23; TEMP 96.4–98.4; O2SAT 88–99
[2023-09-17] MEDS: ALBUTEROL MEDNEB 2.5 mg/3ml NEB NEB SCH ×6 (02:11→22:22)
[2023-09-17] MEDS: ACCU-CHEK COMFORT CURVE STRIP VI SCH ×5 (05:37→18:05)
[2023-09-17] MEDS: InsuLIN REG 1unit/0.01ml Soln (100units/ml) SC SCH ×3 (05:38→18:25)
[2023-09-17 06:27] LABS: Hematocrit 30.6 % (41.0-53.0); Hemoglobin 10.1 g/dL (13.5-17.5); Mean Corpuscular Hgb Conc. 32.9 g/dL (32.0-36.0); Mean Corpuscular Volume 94.3 fL (80.0-100.0); Red Blood Cells 3.24 10^6/uL (4.5-5.90); Red Cell Distribution Width 14.2 % (11.8-14.3); White Blood Cell 25.7 10^3/uL (4.4-10.8)
[2023-09-17 06:47] LABS: Alanine Aminotransferase 942 U/L (7-40); Albumin 2.9 g/dL (3.2-4.8); Alkaline Phosphatase 173 U/L (46-116); Anion Gap 12 (5-15); Aspartate Aminotransferase 277 U/L (13-40); Bilirubin, Total 1.3 mg/dL (0.2-1.0); Calcium 6.9 mg/dL (8.7-10.4); Carbon Dioxide 20 mmol/L (20-30); Chloride 104 mmol/L (98-107); Glucose 234 mg/dL (74-106); Potassium 3.9 mmol/L (3.5-5.1); Sodium 136 mmol/L (136-145); Total Protein 5.1 g/dL (5.7-8.2)
[2023-09-17 07:09] LABS: Band Neutrophils % (manual) 0; Basophils % (manual) 0 (0.0-2.0); Blast Cells 0; Eosinophils % (manual) 0 (0-7); Lymphocytes % (manual) 0 (10.0-50.0); Metamyelocytes % 0; Myelocytes % 0; Promyelocytes % 0; Reactive Lymphocytes 0
[2023-09-17 07:11] LABS: Blood Urea Nitrogen 83 mg/dL (9-23)
[2023-09-17] MEDS: VASOPRESSIN 20 UNITS in SODIUM CHL 0.9% 99 ML IV SCH ×2 (07:32→20:03)
[2023-09-17 07:48] LABS: Base Excess -7.3 mmol/L (-2.0-2.0)
[2023-09-17] MEDS ORDERED: AMIODARONE 450mg/250ml AE 250 ML IV SCH (08:00)
[2023-09-17] MEDS ORDERED: AMIODARONE BOLUS KIT 100 ML IV ONE (08:00)
[2023-09-17] MEDS: PANTOPRAZOLE 40 MG/10 ML VIAL INJ IV SCH (08:11)
[2023-09-17] MEDS: CEFTRIAXONE SODIUM 2 GM in D5W 5% 100 ML IV SCH (08:11)
[2023-09-17] MEDS: SILVER SULFADIAZINE 1 % TOPICAL CREAM 50GM TOP SCH ×2 (08:12→22:31)
[2023-09-17] MEDS: MUPIROCIN 2% OINT 15gm or 22gm FOR MRSA NARES EACHNOSTRI SCH ×2 (08:12→22:00)
[2023-09-17] MEDS: MAGNESIUM SULFATE 1GM/100ML 100 ML IV SCH ×2 (09:33→11:18)
[2023-09-17] MEDS: Nepro With Carb Steady 1 Liter Bottle GT SCH (09:35)
[2023-09-17] MEDS: NOREPINEPHRINE 8 MG/250ML KIT 250 ML IV SCH ×2 (09:36)
[2023-09-17] MEDS: fentaNYL Drip 2500mCg/250mlNS 250 ML IV SCH (09:51)
[2023-09-17 09:56] LABS: Monocytes % (manual) 3 (0-12); Platelet Estimate Decreased
[2023-09-17] MEDS ORDERED: VANCOMYCIN 500 MG in D5W 5% 100 ML IV ONE (11:00)
[2023-09-17] MEDS: SODIUM CHLORIDE 0.9% 1,000 ML IV SCH ×2 (11:18→15:21)
[2023-09-17] MEDS: AMIODARONE 450mg/250ml AE 250 ML IV SCH (14:18)
[2023-09-17] MEDS: MIDAZOLAM DRIP 50 mg/50mL 50 ML IV SCH (15:21)
[2023-09-17] MEDS ORDERED: METOCLOPRAMIDE HCL 5MG/ml INJ 2ml VIAL IV ONE (17:00)
[2023-09-17] MEDS ORDERED: ALBUTEROL SULF 2.5 MG/0.5ML(0.5%) NEB SOLN ONE ×2 (18:13→22:20)
[2023-09-17] MEDS: INSULIN LANTUS (GLARGINE) 1 /0.01ml (100units/ml) SC SCH (22:00)
[2023-09-17] MEDS: LACTULOSE 20Gm/30ML SOLN PO SCH (22:31)
[2023-09-17] MEDS: METOCLOPRAMIDE HCL 5MG/ml INJ 2ml VIAL IV SCH (22:31)
[2023-09-18] VITALS (106 sets, daily range): BP systolic 53–118; BP diastolic 24–81; PULSE 74–94; RESP 9–26; TEMP 97.5–98.6; O2SAT 91–98
[2023-09-18] MEDS: SODIUM CHLORIDE 0.9% 1,000 ML IV SCH ×3 (00:17→17:34)
[2023-09-18] MEDS: NOREPINEPHRINE 8 MG/250ML KIT 250 ML IV SCH ×4 (00:18→21:54)
[2023-09-18] MEDS: ACCU-CHEK COMFORT CURVE STRIP VI SCH ×4 (00:20→17:50)
[2023-09-18] MEDS: InsuLIN REG 1unit/0.01ml Soln (100units/ml) SC SCH ×4 (00:27→17:44)
[2023-09-18] MEDS ORDERED: ALBUTEROL SULF 2.5 MG/0.5ML(0.5%) NEB SOLN ONE ×4 (02:29→13:45)
[2023-09-18] MEDS: ALBUTEROL MEDNEB 2.5 mg/3ml NEB NEB SCH ×3 (02:30→10:00)
[2023-09-18 04:27] LABS: Basophils # (auto) 0 10 ^3/uL (0-0.2); Basophils % (auto) 0.1 % (0.0-2.0); Eosinophils # (auto) 0 10 ^3/uL (0-0.8); Eosinophils % (auto) 0.1 % (0.0-7.0); Hematocrit 30.8 % (41.0-53.0); Hemoglobin 10.2 g/dL (13.5-17.5); Lymphocytes # (auto) 0.7 10 ^3/uL (0.4-5.4); Mean Corpuscular Hemoglobin 31.6 pg (28.0-32.0); Mean Corpuscular Hgb Conc. 33.2 g/dL (32.0-36.0); Mean Corpuscular Volume 95.2 fL (80.0-100.0); Monocytes # (auto) 2.4 10 ^3/uL (0-1.3); Monocytes % (auto) 12.7 % (0.0-12.0); Neutrophils # (auto) 15.5 10 ^3/uL (1.6-8.6); Neutrophils % (auto) 83.1 % (37.0-80.0); Nucleated Red Blood Cells % 0.3 %; Red Blood Cells 3.24 10^6/uL (4.5-5.90); Red Cell Distribution Width 14.4 % (11.8-14.3); White Blood Cell 18.7 10^3/uL (4.4-10.8)
[2023-09-18 04:33] LABS: Alanine Aminotransferase 770 U/L (7-40); Albumin 2.9 g/dL (3.2-4.8); Alkaline Phosphatase 174 U/L (46-116); Anion Gap 13 (5-15); Aspartate Aminotransferase 166 U/L (13-40); BUN/Creatinine Ratio 22.2 (10.0-20.0); Calcium 7.1 mg/dL (8.7-10.4); Carbon Dioxide 18 mmol/L (20-30); Chloride 104 mmol/L (98-107); Glucose 270 mg/dL (74-106); Potassium 3.5 mmol/L (3.5-5.1); Sodium 135 mmol/L (136-145); Total Protein 5.1 g/dL (5.7-8.2)
[2023-09-18 04:51] LABS: Blood Urea Nitrogen 88 mg/dL (9-23)
[2023-09-18] MEDS: AMIODARONE 450mg/250ml AE 250 ML IV SCH ×2 (06:24→19:38)
[2023-09-18] MEDS: METOCLOPRAMIDE HCL 5MG/ml INJ 2ml VIAL IV SCH ×3 (06:24→21:54)
[2023-09-18] MEDS: VASOPRESSIN 20 UNITS in SODIUM CHL 0.9% 99 ML IV SCH ×2 (07:10→19:30)
[2023-09-18] MEDS ORDERED: FUROSEMIDE 100 MG/10ML VIAL IV ONE (08:45)
[2023-09-18 09:47] LABS: Base Excess -7.4 mmol/L (-2.0-2.0)
[2023-09-18] MEDS: PANTOPRAZOLE 40 MG/10 ML VIAL INJ IV SCH (10:22)
[2023-09-18] MEDS: LACTULOSE 20Gm/30ML SOLN PO SCH ×2 (10:22→21:54)
[2023-09-18] MEDS: CEFTRIAXONE SODIUM 2 GM in D5W 5% 100 ML IV SCH (10:23)
[2023-09-18] MEDS: SILVER SULFADIAZINE 1 % TOPICAL CREAM 50GM TOP SCH ×2 (10:27→21:53)
[2023-09-18] MEDS: MUPIROCIN 2% OINT 15gm or 22gm FOR MRSA NARES EACHNOSTRI SCH ×2 (10:27→21:53)
[2023-09-18] MEDS ORDERED: VANCOMYCIN 1GM/200ML 250 ML IV ONE (13:00)
[2023-09-18] MEDS ORDERED: SODIUM BICARBONATE 8.4 % INJ 50ML VIAL IV ONE (17:00)
[2023-09-18] MEDS: ALBUTEROL SULF 2.5 MG/0.5ML(0.5%) NEB SOLN NEB SCH ×3 (18:00→22:13)
[2023-09-18] MEDS: fentaNYL Drip 2500mCg/250mlNS 250 ML IV SCH (19:30)
[2023-09-18] MEDS: MIDAZOLAM DRIP 50 mg/50mL 50 ML IV SCH (19:35)
[2023-09-18] MEDS: INSULIN LANTUS (GLARGINE) 1 /0.01ml (100units/ml) SC SCH (22:00)
[2023-09-19] VITALS (108 sets, daily range): BP systolic 48–121; BP diastolic 25–51; PULSE 76–93; RESP 8–24; TEMP 97.3–99; O2SAT 94–99
[2023-09-19] MEDS: ACCU-CHEK COMFORT CURVE STRIP VI SCH ×5 (00:03→23:47)
[2023-09-19] MEDS: InsuLIN REG 1unit/0.01ml Soln (100units/ml) SC SCH ×5 (00:08→23:47)
[2023-09-19] MEDS: ALBUTEROL SULF 2.5 MG/0.5ML(0.5%) NEB SOLN NEB SCH ×6 (01:48→22:51)
[2023-09-19] MEDS: SODIUM CHLORIDE 0.9% 1,000 ML IV SCH ×2 (02:26→17:55)
[2023-09-19] MEDS: METOCLOPRAMIDE HCL 5MG/ml INJ 2ml VIAL IV SCH ×3 (05:02→21:14)
[2023-09-19] MEDS: NOREPINEPHRINE 8 MG/250ML KIT 250 ML IV SCH ×2 (05:02→21:18)
[2023-09-19] MEDS: VASOPRESSIN 20 UNITS in SODIUM CHL 0.9% 99 ML IV SCH ×2 (05:24→16:31)
[2023-09-19 06:26] LABS: Hematocrit 28.7 % (41.0-53.0); Hemoglobin 9.4 g/dL (13.5-17.5); Mean Corpuscular Hemoglobin 31.1 pg (28.0-32.0); Mean Corpuscular Hgb Conc. 32.9 g/dL (32.0-36.0); Mean Corpuscular Volume 94.8 fL (80.0-100.0); Red Blood Cells 3.03 10^6/uL (4.5-5.90); Red Cell Distribution Width 14.3 % (11.8-14.3); White Blood Cell 15.1 10^3/uL (4.4-10.8)
[2023-09-19] MEDS: MIDAZOLAM DRIP 50 mg/50mL 50 ML IV SCH ×2 (06:39→13:56)
[2023-09-19 06:40] LABS: Alanine Aminotransferase 483 U/L (7-40); Albumin 2.6 g/dL (3.2-4.8); Alkaline Phosphatase 136 U/L (46-116); Anion Gap 13 (5-15); Aspartate Aminotransferase 83 U/L (13-40); BUN/Creatinine Ratio 18.8 (10.0-20.0); Bilirubin, Total 0.8 mg/dL (0.2-1.0); Calcium 7.2 mg/dL (8.7-10.4); Carbon Dioxide 19 mmol/L (20-30); Chloride 105 mmol/L (98-107); Glucose 221 mg/dL (74-106); Potassium 3.3 mmol/L (3.5-5.1); Sodium 137 mmol/L (136-145); Total Protein 4.6 g/dL (5.7-8.2)
[2023-09-19 06:42] LABS: Blood Urea Nitrogen 81 mg/dL (9-23)
[2023-09-19 07:12] LABS: Basophils % (manual) 0 (0.0-2.0); Blast Cells 0; Eosinophils % (manual) 0 (0-7); Myelocytes % 0; Promyelocytes % 0; Reactive Lymphocytes 0
[2023-09-19 08:50] LABS: Base Excess -5.8 mmol/L (-2.0-2.0)
[2023-09-19 09:10] LABS: Band Neutrophils % (manual) 5; Lymphocytes % (manual) 3 (10.0-50.0); Metamyelocytes % 1; Monocytes % (manual) 6 (0-12)
[2023-09-19 09:11] LABS: Platelet Estimate Decreased
[2023-09-19] MEDS ORDERED: POTASSIUM CHL 20MEQ/100ML 100 ML IV ONE (09:15)
[2023-09-19] MEDS: LACTULOSE 20Gm/30ML SOLN PO SCH ×2 (09:51→21:14)
[2023-09-19] MEDS: PANTOPRAZOLE 40 MG/10 ML VIAL INJ IV SCH (09:51)
[2023-09-19] MEDS: CEFTRIAXONE SODIUM 2 GM in D5W 5% 100 ML IV SCH (10:06)
[2023-09-19] MEDS: MUPIROCIN 2% OINT 15gm or 22gm FOR MRSA NARES EACHNOSTRI SCH (10:07)
[2023-09-19] MEDS: AMIODARONE HCL 200 MG TAB PO SCH ×2 (10:08→21:15)
[2023-09-19] MEDS: SILVER SULFADIAZINE 1 % TOPICAL CREAM 50GM TOP SCH ×2 (10:08→21:15)
[2023-09-19] MEDS ORDERED: FLEET MINERAL OIL ENEMA 133 ML PR ONE (11:00)
[2023-09-19] MEDS ORDERED: BISACODYL 10 MG RECT SUPP PR ONE (11:00)
[2023-09-19 13:27] LABS: Protein, Urine 37.3 mg/dL (0.0-11.9)
[2023-09-19 13:30] LABS: Creatinine, Urine 26.2 mg/dL (30.0-125.0); Urine Protein/Creatinine Ratio 1.42
[2023-09-19] MEDS: fentaNYL Drip 2500mCg/250mlNS 250 ML IV SCH (13:55)
[2023-09-19 14:00] LABS: Creatinine, Urine 26.98 mg/dL (30.0-125.0)
[2023-09-19] MEDS: INSULIN LANTUS (GLARGINE) 1 /0.01ml (100units/ml) SC SCH (21:18)
[2023-09-20] VITALS (110 sets, daily range): BP systolic 92–125; BP diastolic 31–55; PULSE 81–92; RESP 15–26; TEMP 97.2–99; O2SAT 93–100
[2023-09-20] MEDS: MIDAZOLAM DRIP 50 mg/50mL 50 ML IV SCH ×3 (01:21→20:04)
[2023-09-20] MEDS: ALBUTEROL SULF 2.5 MG/0.5ML(0.5%) NEB SOLN NEB SCH ×5 (02:39→22:14)
[2023-09-20] MEDS: VASOPRESSIN 20 UNITS in SODIUM CHL 0.9% 99 ML IV SCH ×2 (03:38→14:45)
[2023-09-20] MEDS: NOREPINEPHRINE 8 MG/250ML KIT 250 ML IV SCH (04:22)
[2023-09-20] MEDS: SODIUM CHLORIDE 0.9% 1,000 ML IV SCH (04:25)
[2023-09-20 04:31] LABS: Hematocrit 29.3 % (41.0-53.0); Hemoglobin 9.6 g/dL (13.5-17.5); Mean Corpuscular Hgb Conc. 32.7 g/dL (32.0-36.0); Mean Corpuscular Volume 94.6 fL (80.0-100.0); Red Cell Distribution Width 14.3 % (11.8-14.3)
[2023-09-20 04:35] LABS: Basophils % (manual) 0 (0.0-2.0); Blast Cells 0; Eosinophils % (manual) 0 (0-7); Metamyelocytes % 0; Myelocytes % 0; Promyelocytes % 0; Reactive Lymphocytes 0
[2023-09-20 04:46] LABS: Alanine Aminotransferase 360 U/L (7-40); Albumin 2.7 g/dL (3.2-4.8); Alkaline Phosphatase 150 U/L (46-116); Aspartate Aminotransferase 55 U/L (13-40); BUN/Creatinine Ratio 18.5 (10.0-20.0); Blood Urea Nitrogen 74 mg/dL (9-23); Calcium 7.9 mg/dL (8.5-10.1); Chloride 106 mmol/L (98-107); Glucose 232 mg/dL (74-106); Potassium 3.3 mmol/L (3.5-5.1); Sodium 139 mmol/L (136-145)
[2023-09-20 04:47] LABS: Bilirubin, Total 0.5 mg/dL (0.2-1.0); Total Protein 4.8 g/dL (5.7-8.2)
[2023-09-20 04:57] LABS: Anion Gap 15 (5-15); Carbon Dioxide 18 mmol/L (20-30)
[2023-09-20] MEDS: METOCLOPRAMIDE HCL 5MG/ml INJ 2ml VIAL IV SCH ×3 (05:13→22:18)
[2023-09-20 05:18] LABS: Band Neutrophils % (manual) 1; Lymphocytes % (manual) 5 (10.0-50.0); Monocytes % (manual) 4 (0-12); Platelet Estimate Decreased
[2023-09-20] MEDS: InsuLIN REG 1unit/0.01ml Soln (100units/ml) SC SCH ×4 (05:25→23:35)
[2023-09-20] MEDS: ACCU-CHEK COMFORT CURVE STRIP VI SCH ×4 (05:25→23:34)
[2023-09-20 07:54] LABS: Base Excess -7.5 mmol/L (-2.0-2.0)
[2023-09-20] MEDS: PANTOPRAZOLE 40 MG/10 ML VIAL INJ IV SCH (08:27)
[2023-09-20] MEDS: LACTULOSE 20Gm/30ML SOLN PO SCH ×2 (08:27→22:00)
[2023-09-20] MEDS: CEFTRIAXONE SODIUM 2 GM in D5W 5% 100 ML IV SCH (08:28)
[2023-09-20] MEDS: SILVER SULFADIAZINE 1 % TOPICAL CREAM 50GM TOP SCH ×2 (08:34→22:21)
[2023-09-20] MEDS: AMIODARONE HCL 200 MG TAB PO SCH ×2 (09:51→22:18)
[2023-09-20] MEDS: fentaNYL Drip 2500mCg/250mlNS 250 ML IV SCH (09:58)
[2023-09-20] MEDS ORDERED: BISACODYL 10 MG RECT SUPP PR PRN (10:00)
[2023-09-20] MEDS: POTASSIUM CHL 20MEQ/100ML 100 ML IV SCH ×2 (13:28→14:30)
[2023-09-20] MEDS: SODIUM BICARBONATE 50ML VIAL 50 ML in SOD CHL 0.45% 1,000 ML IV SCH (14:29)
[2023-09-20] MEDS: INSULIN LANTUS (GLARGINE) 1 /0.01ml (100units/ml) SC SCH (22:20)
[2023-09-21] VITALS (109 sets, daily range): BP systolic 91–151; BP diastolic 38–61; PULSE 79–91; RESP 11–25; TEMP 98.1–98.9; O2SAT 97–100
[2023-09-21] MEDS: NOREPINEPHRINE 8 MG/250ML KIT 250 ML IV SCH ×3 (01:09→21:51)
[2023-09-21] MEDS: Nepro With Carb Steady 1 Liter Bottle GT SCH (01:12)
[2023-09-21] MEDS: SODIUM BICARBONATE 50ML VIAL 50 ML in SOD CHL 0.45% 1,000 ML IV SCH ×3 (01:18→21:46)
[2023-09-21] MEDS: VASOPRESSIN 20 UNITS in SODIUM CHL 0.9% 99 ML IV SCH ×2 (01:32→12:59)
[2023-09-21] MEDS: ALBUTEROL SULF 2.5 MG/0.5ML(0.5%) NEB SOLN NEB SCH ×6 (02:14→22:37)
[2023-09-21 04:14] LABS: Basophils # (auto) 0 10 ^3/uL (0-0.2); Basophils % (auto) 0.1 % (0.0-2.0); Eosinophils # (auto) 0.3 10 ^3/uL (0-0.8); Eosinophils % (auto) 1.6 % (0.0-7.0); Hematocrit 27.8 % (41.0-53.0); Lymphocytes # (auto) 0.5 10 ^3/uL (0.4-5.4); Lymphocytes % (auto) 2.7 % (10.0-50.0); Mean Corpuscular Hemoglobin 31.2 pg (28.0-32.0); Mean Corpuscular Hgb Conc. 32.5 g/dL (32.0-36.0); Mean Corpuscular Volume 96.1 fL (80.0-100.0); Monocytes # (auto) 1.3 10 ^3/uL (0-1.3); Monocytes % (auto) 7.3 % (0.0-12.0); Neutrophils # (auto) 15.2 10 ^3/uL (1.6-8.6); Neutrophils % (auto) 88.3 % (37.0-80.0); Red Cell Distribution Width 14.6 % (11.8-14.3); White Blood Cell 17.2 10^3/uL (4.4-10.8)
[2023-09-21 04:46] LABS: Alkaline Phosphatase 131 U/L (46-116); Anion Gap 10 (5-15); BUN/Creatinine Ratio 19.4 (10.0-20.0); Blood Urea Nitrogen 69 mg/dL (9-23); Calcium 7.7 mg/dL (8.7-10.4); Carbon Dioxide 21 mmol/L (20-30); Chloride 109 mmol/L (98-107); Glucose 214 mg/dL (74-106); Potassium 3.6 mmol/L (3.5-5.1); Sodium 140 mmol/L (136-145)
[2023-09-21 04:47] LABS: Albumin 2.6 g/dL (3.2-4.8); Aspartate Aminotransferase 27 U/L (13-40); Bilirubin, Total 0.5 mg/dL (0.2-1.0); Total Protein 4.6 g/dL (5.7-8.2)
[2023-09-21] MEDS: MIDAZOLAM DRIP 50 mg/50mL 50 ML IV SCH ×2 (05:17→14:28)
[2023-09-21] MEDS: METOCLOPRAMIDE HCL 5MG/ml INJ 2ml VIAL IV SCH ×3 (05:17→21:46)
[2023-09-21] MEDS: ACCU-CHEK COMFORT CURVE STRIP VI SCH ×3 (06:10→17:44)
[2023-09-21] MEDS: fentaNYL Drip 2500mCg/250mlNS 250 ML IV SCH (06:10)
[2023-09-21] MEDS: InsuLIN REG 1unit/0.01ml Soln (100units/ml) SC SCH ×3 (06:14→17:46)
[2023-09-21 08:59] LABS: Alanine Aminotransferase 236 U/L (7-40)
[2023-09-21 09:16] LABS: Base Excess -3.4 mmol/L (-2.0-2.0)
[2023-09-21] MEDS: LACTULOSE 20Gm/30ML SOLN PO SCH ×2 (10:00→21:46)
[2023-09-21] MEDS: PANTOPRAZOLE 40 MG/10 ML VIAL INJ IV SCH (10:18)
[2023-09-21] MEDS: SILVER SULFADIAZINE 1 % TOPICAL CREAM 50GM TOP SCH ×2 (10:19→21:50)
[2023-09-21] MEDS: AMIODARONE HCL 200 MG TAB PO SCH ×2 (10:19→21:46)
[2023-09-21] MEDS: CEFTRIAXONE SODIUM 2 GM in D5W 5% 100 ML IV SCH (10:51)
[2023-09-21] MEDS: INSULIN LANTUS (GLARGINE) 1 /0.01ml (100units/ml) SC SCH (21:48)
[2023-09-22] VITALS (108 sets, daily range): BP systolic 87–144; BP diastolic 36–83; PULSE 79–94; RESP 12–27; TEMP 98.6–99.7; O2SAT 81–100
[2023-09-22] MEDS: VASOPRESSIN 20 UNITS in SODIUM CHL 0.9% 99 ML IV SCH ×3 (00:06→21:31)
[2023-09-22] MEDS: ACCU-CHEK COMFORT CURVE STRIP VI SCH ×5 (00:32→23:16)
[2023-09-22] MEDS: InsuLIN REG 1unit/0.01ml Soln (100units/ml) SC SCH ×5 (00:35→23:24)
[2023-09-22] MEDS: MIDAZOLAM DRIP 50 mg/50mL 50 ML IV SCH ×2 (01:01→17:51)
[2023-09-22] MEDS: fentaNYL Drip 2500mCg/250mlNS 250 ML IV SCH ×3 (01:12→23:25)
[2023-09-22] MEDS: ALBUTEROL SULF 2.5 MG/0.5ML(0.5%) NEB SOLN NEB SCH ×6 (01:47→22:14)
[2023-09-22] MEDS: METOCLOPRAMIDE HCL 5MG/ml INJ 2ml VIAL IV SCH ×3 (05:54→21:31)
[2023-09-22] MEDS: SODIUM BICARBONATE 50ML VIAL 50 ML in SOD CHL 0.45% 1,000 ML IV SCH (05:54)
[2023-09-22] MEDS: CEFTRIAXONE SODIUM 2 GM in D5W 5% 100 ML IV SCH (09:07)
[2023-09-22] MEDS: LACTULOSE 20Gm/30ML SOLN PO SCH ×2 (09:08→21:31)
[2023-09-22] MEDS: AMIODARONE HCL 200 MG TAB PO SCH ×2 (09:08→21:31)
[2023-09-22] MEDS: PANTOPRAZOLE 40 MG/10 ML VIAL INJ IV SCH (09:08)
[2023-09-22] MEDS: NOREPINEPHRINE 8 MG/250ML KIT 250 ML IV SCH (10:44)
[2023-09-22] MEDS: SOD CHL 0.45% 1,000 ML IV SCH (11:30)
[2023-09-22 13:11] LABS: Basophils # (auto) 0 10 ^3/uL (0-0.2); Eosinophils # (auto) 0.3 10 ^3/uL (0-0.8); Eosinophils % (auto) 2.3 % (0.0-7.0); Hemoglobin 9.1 g/dL (13.5-17.5); Lymphocytes # (auto) 0.5 10 ^3/uL (0.4-5.4); Lymphocytes % (auto) 3.2 % (10.0-50.0); Mean Corpuscular Hemoglobin 31.4 pg (28.0-32.0); Mean Corpuscular Hgb Conc. 32.6 g/dL (32.0-36.0); Mean Corpuscular Volume 96.3 fL (80.0-100.0); Monocytes # (auto) 1.2 10 ^3/uL (0-1.3); Monocytes % (auto) 7.9 % (0.0-12.0); Neutrophils # (auto) 12.8 10 ^3/uL (1.6-8.6); Neutrophils % (auto) 86.6 % (37.0-80.0); Red Blood Cells 2.91 10^6/uL (4.5-5.90); Red Cell Distribution Width 14.2 % (11.8-14.3); White Blood Cell 14.7 10^3/uL (4.4-10.8)
[2023-09-22 13:25] LABS: Alanine Aminotransferase 152 U/L (7-40); Albumin 2.5 g/dL (3.2-4.8); Alkaline Phosphatase 112 U/L (46-116); Anion Gap 8 (5-15); Aspartate Aminotransferase 28 U/L (13-40); BUN/Creatinine Ratio 21.1 (10.0-20.0); Carbon Dioxide 25 mmol/L (20-30); Chloride 110 mmol/L (98-107); Glucose 132 mg/dL (74-106); Potassium 3.4 mmol/L (3.5-5.1); Sodium 143 mmol/L (136-145)
[2023-09-22 13:27] LABS: Bilirubin, Total 0.4 mg/dL (0.2-1.0); Total Protein 4.6 g/dL (5.7-8.2)
[2023-09-22 13:32] LABS: Blood Urea Nitrogen 59 mg/dL (9-23)
[2023-09-22] MEDS: SILVER SULFADIAZINE 1 % TOPICAL CREAM 50GM TOP SCH ×2 (14:00→21:31)
[2023-09-22] MEDS ORDERED: POTASSIUM EFFERVESENT TAB 25 MEQ GT ONE (14:15)
[2023-09-22] MEDS: Glucerna 1.2 Cal 1Liter BOTTLE GT SCH (14:38)
[2023-09-22] MEDS ORDERED: VANCOMYCIN 500 MG in D5W 5% 100 ML IV ONE (16:00)
[2023-09-22] MEDS: INSULIN LANTUS (GLARGINE) 1 /0.01ml (100units/ml) SC SCH (21:33)
[2023-09-23] VITALS (111 sets, daily range): BP systolic 78–173; BP diastolic 35–112; PULSE 81–99; RESP 12–25; TEMP 98.1–99.3; O2SAT 96–100
[2023-09-23] MEDS: ALBUTEROL SULF 2.5 MG/0.5ML(0.5%) NEB SOLN NEB SCH ×6 (02:32→21:30)
[2023-09-23 04:15] LABS: Basophils # (auto) 0 10 ^3/uL (0-0.2); Basophils % (auto) 0.4 % (0.0-2.0); Eosinophils # (auto) 0.3 10 ^3/uL (0-0.8); Eosinophils % (auto) 2.8 % (0.0-7.0); Hematocrit 27.5 % (41.0-53.0); Lymphocytes # (auto) 0.6 10 ^3/uL (0.4-5.4); Mean Corpuscular Hemoglobin 31.6 pg (28.0-32.0); Mean Corpuscular Hgb Conc. 32.7 g/dL (32.0-36.0); Mean Corpuscular Volume 96.8 fL (80.0-100.0); Monocytes % (auto) 8.6 % (0.0-12.0); Neutrophils # (auto) 9.7 10 ^3/uL (1.6-8.6); Neutrophils % (auto) 83.2 % (37.0-80.0); Nucleated Red Blood Cells % 0.1 %; Red Blood Cells 2.85 10^6/uL (4.5-5.90); Red Cell Distribution Width 14.5 % (11.8-14.3); White Blood Cell 11.7 10^3/uL (4.4-10.8)
[2023-09-23 04:41] LABS: Alanine Aminotransferase 119 U/L (7-40); Albumin 2.5 g/dL (3.2-4.8); Alkaline Phosphatase 117 U/L (46-116); Anion Gap 7 (5-15); Aspartate Aminotransferase 34 U/L (13-40); BUN/Creatinine Ratio 20.5 (10.0-20.0); Bilirubin, Total 0.4 mg/dL (0.2-1.0); Blood Urea Nitrogen 52 mg/dL (9-23); Calcium 7.8 mg/dL (8.7-10.4); Carbon Dioxide 25 mmol/L (20-30); Chloride 110 mmol/L (98-107); Glucose 180 mg/dL (74-106); Potassium 3.5 mmol/L (3.5-5.1); Sodium 142 mmol/L (136-145); Total Protein 4.6 g/dL (5.7-8.2)
[2023-09-23] MEDS: InsuLIN REG 1unit/0.01ml Soln (100units/ml) SC SCH ×3 (06:00→17:58)
[2023-09-23] MEDS: ACCU-CHEK COMFORT CURVE STRIP VI SCH ×3 (06:02→17:58)
[2023-09-23] MEDS: METOCLOPRAMIDE HCL 5MG/ml INJ 2ml VIAL IV SCH ×3 (06:08→22:00)
[2023-09-23] MEDS: SOD CHL 0.45% 1,000 ML IV SCH (06:08)
[2023-09-23 07:32] LABS: Base Excess 1.6 mmol/L (-2.0-2.0)
[2023-09-23] MEDS: VASOPRESSIN 20 UNITS in SODIUM CHL 0.9% 99 ML IV SCH ×2 (09:27→20:34)
[2023-09-23] MEDS: PANTOPRAZOLE 40 MG/10 ML VIAL INJ IV SCH (10:28)
[2023-09-23] MEDS: LACTULOSE 20Gm/30ML SOLN PO SCH ×2 (10:28→22:00)
[2023-09-23] MEDS: AMIODARONE HCL 200 MG TAB PO SCH ×2 (10:28→22:00)
[2023-09-23] MEDS: SILVER SULFADIAZINE 1 % TOPICAL CREAM 50GM TOP SCH ×2 (10:29→22:00)
[2023-09-23] MEDS: CEFTRIAXONE SODIUM 2 GM in D5W 5% 100 ML IV SCH (12:13)
[2023-09-23] MEDS: NOREPINEPHRINE 8 MG/250ML KIT 250 ML IV SCH ×2 (12:30→21:14)
[2023-09-23] MEDS: DexmedeTOMIDine 200 MCG in D5W 5% 48 ML IV SCH ×2 (14:10→22:42)
[2023-09-24] VITALS (97 sets, daily range): BP systolic 76–172; BP diastolic 39–80; PULSE 85–110; RESP 11–30; TEMP 97.5–99.7; O2SAT 96–100
[2023-09-24] MEDS: ACCU-CHEK COMFORT CURVE STRIP VI SCH ×4 (00:12→17:37)
[2023-09-24] MEDS: InsuLIN REG 1unit/0.01ml Soln (100units/ml) SC SCH ×4 (00:14→17:43)
[2023-09-24] MEDS: ALBUTEROL SULF 2.5 MG/0.5ML(0.5%) NEB SOLN NEB SCH ×6 (01:30→22:22)
[2023-09-24 04:49] LABS: Basophils # (auto) 0 10 ^3/uL (0-0.2); Basophils % (auto) 0.4 % (0.0-2.0); Eosinophils # (auto) 0.1 10 ^3/uL (0-0.8); Eosinophils % (auto) 1.6 % (0.0-7.0); Hematocrit 29.7 % (41.0-53.0); Hemoglobin 9.7 g/dL (13.5-17.5); Lymphocytes # (auto) 0.4 10 ^3/uL (0.4-5.4); Lymphocytes % (auto) 4.8 % (10.0-50.0); Mean Corpuscular Hemoglobin 30.9 pg (28.0-32.0); Mean Corpuscular Hgb Conc. 32.6 g/dL (32.0-36.0); Mean Corpuscular Volume 94.9 fL (80.0-100.0); Monocytes # (auto) 0.8 10 ^3/uL (0-1.3); Monocytes % (auto) 8.4 % (0.0-12.0); Neutrophils # (auto) 7.7 10 ^3/uL (1.6-8.6); Neutrophils % (auto) 84.8 % (37.0-80.0); Red Blood Cells 3.13 10^6/uL (4.5-5.90); Red Cell Distribution Width 14.4 % (11.8-14.3)
[2023-09-24] MEDS: METOCLOPRAMIDE HCL 5MG/ml INJ 2ml VIAL IV SCH ×3 (05:44→21:30)
[2023-09-24 05:47] LABS: Alanine Aminotransferase 108 U/L (7-40); Albumin 2.8 g/dL (3.2-4.8); Alkaline Phosphatase 114 U/L (46-116); Anion Gap 12 (5-15); Aspartate Aminotransferase 28 U/L (13-40); BUN/Creatinine Ratio 21.4 (10.0-20.0); Bilirubin, Total 0.5 mg/dL (0.2-1.0); Blood Urea Nitrogen 48 mg/dL (9-23); Calcium 7.9 mg/dL (8.7-10.4); Carbon Dioxide 22 mmol/L (20-30); Chloride 111 mmol/L (98-107); Glucose 177 mg/dL (74-106); Potassium 3.3 mmol/L (3.5-5.1); Sodium 145 mmol/L (136-145); Total Protein 5.2 g/dL (5.7-8.2)
[2023-09-24 06:46] LABS: Platelet Estimate Decreased
[2023-09-24 07:31] LABS: Base Excess 1.7 mmol/L (-2.0-2.0)
[2023-09-24] MEDS: VASOPRESSIN 20 UNITS in SODIUM CHL 0.9% 99 ML IV SCH ×2 (07:41→18:39)
[2023-09-24] MEDS ORDERED: VANCOMYCIN 500 MG in D5W 5% 100 ML IV ONE (09:00)
[2023-09-24] MEDS: LACTULOSE 20Gm/30ML SOLN PO SCH ×2 (10:00→21:30)
[2023-09-24] MEDS: PANTOPRAZOLE 40 MG/10 ML VIAL INJ IV SCH (10:06)
[2023-09-24] MEDS: AMIODARONE HCL 200 MG TAB PO SCH ×2 (10:06→21:03)
[2023-09-24] MEDS: SILVER SULFADIAZINE 1 % TOPICAL CREAM 50GM TOP SCH ×2 (10:08→21:30)
[2023-09-24] MEDS: CEFTRIAXONE SODIUM 2 GM in D5W 5% 100 ML IV SCH (10:08)
[2023-09-24] MEDS: POTASSIUM CHL 20MEQ/100ML 100 ML IV SCH ×2 (11:32→12:26)
[2023-09-24] MEDS: DexmedeTOMIDine 200 MCG in D5W 5% 48 ML IV SCH (12:15)
[2023-09-24] MEDS ORDERED: POTASSIUM EFFERVESENT TAB 25 MEQ GT ONE (13:30)
[2023-09-24] MEDS ORDERED: FUROSEMIDE 40 MG/4 ML VIAL IV ONE (13:30)
[2023-09-24] MEDS: fentaNYL Drip 2500mCg/250mlNS 250 ML IV SCH (14:08)
[2023-09-25] VITALS (95 sets, daily range): BP systolic 70–162; BP diastolic 30–72; PULSE 62–106; RESP 12–33; TEMP 98.4–99; O2SAT 97–100
[2023-09-25] MEDS: ACCU-CHEK COMFORT CURVE STRIP VI SCH ×4 (01:00→17:44)
[2023-09-25] MEDS: InsuLIN REG 1unit/0.01ml Soln (100units/ml) SC SCH ×4 (01:03→17:51)
[2023-09-25] MEDS: DexmedeTOMIDine 200 MCG in D5W 5% 48 ML IV SCH ×2 (01:04→13:15)
[2023-09-25] MEDS: ALBUTEROL SULF 2.5 MG/0.5ML(0.5%) NEB SOLN NEB SCH ×6 (02:02→22:01)
[2023-09-25 04:13] LABS: Basophils # (auto) 0.1 10 ^3/uL (0-0.2); Eosinophils # (auto) 0.1 10 ^3/uL (0-0.8); Eosinophils % (auto) 0.8 % (0.0-7.0); Hematocrit 28.9 % (41.0-53.0); Hemoglobin 9.4 g/dL (13.5-17.5); Lymphocytes # (auto) 0.5 10 ^3/uL (0.4-5.4); Lymphocytes % (auto) 5.6 % (10.0-50.0); Mean Corpuscular Hemoglobin 31.8 pg (28.0-32.0); Mean Corpuscular Hgb Conc. 32.3 g/dL (32.0-36.0); Mean Corpuscular Volume 98.3 fL (80.0-100.0); Monocytes # (auto) 0.9 10 ^3/uL (0-1.3); Monocytes % (auto) 9.5 % (0.0-12.0); Neutrophils % (auto) 83.1 % (37.0-80.0); Red Blood Cells 2.95 10^6/uL (4.5-5.90); Red Cell Distribution Width 14.7 % (11.8-14.3); White Blood Cell 9.6 10^3/uL (4.4-10.8)
[2023-09-25 04:37] LABS: Alanine Aminotransferase 103 U/L (7-40); Alkaline Phosphatase 118 U/L (46-116); Anion Gap 12 (5-15); Aspartate Aminotransferase 31 U/L (13-40); BUN/Creatinine Ratio 19.5 (10.0-20.0); Blood Urea Nitrogen 40 mg/dL (9-23); Calcium 8.3 mg/dL (8.7-10.4); Carbon Dioxide 24 mmol/L (20-30); Chloride 110 mmol/L (98-107); Glucose 198 mg/dL (74-106); Potassium 3.4 mmol/L (3.5-5.1); Sodium 146 mmol/L (136-145)
[2023-09-25 04:38] LABS: Bilirubin, Total 0.5 mg/dL (0.2-1.0); Total Protein 6.1 g/dL (5.7-8.2)
[2023-09-25] MEDS: METOCLOPRAMIDE HCL 5MG/ml INJ 2ml VIAL IV SCH ×3 (05:43→21:39)
[2023-09-25] MEDS: VASOPRESSIN 20 UNITS in SODIUM CHL 0.9% 99 ML IV SCH ×2 (05:55→16:56)
[2023-09-25 08:15] LABS: Base Excess 3.1 mmol/L (-2.0-2.0)
[2023-09-25] MEDS: LACTULOSE 20Gm/30ML SOLN PO SCH ×2 (09:51→21:38)
[2023-09-25] MEDS: PANTOPRAZOLE 40 MG/10 ML VIAL INJ IV SCH (09:52)
[2023-09-25] MEDS: SILVER SULFADIAZINE 1 % TOPICAL CREAM 50GM TOP SCH ×2 (09:52→21:40)
[2023-09-25] MEDS: CEFTRIAXONE SODIUM 2 GM in D5W 5% 100 ML IV SCH (09:52)
[2023-09-25] MEDS: AMIODARONE HCL 200 MG TAB PO SCH ×2 (09:52→21:39)
[2023-09-25] MEDS: NOREPINEPHRINE 8 MG/250ML KIT 250 ML IV SCH (12:30)
[2023-09-25] MEDS ORDERED: VANCOMYCIN 1GM/200ML 250 ML IV ONE (14:00)
[2023-09-25] MEDS ORDERED: VANCOMYCIN 500 MG in D5W 5% 100 ML IV ONE (14:00)
[2023-09-25] MEDS ORDERED: FUROSEMIDE 40 MG/4 ML VIAL IV ONE (15:15)
[2023-09-25] MEDS ORDERED: POTASSIUM CHL 20MEQ/100ML 200 ML IV ONE (15:49)
[2023-09-25] MEDS ORDERED: FUROSEMIDE 40 MG/4 ML VIAL ONE (15:50)
[2023-09-25] MEDS: POTASSIUM CHL 20MEQ/100ML 100 ML IV SCH ×2 (15:55→17:44)
[2023-09-25] MEDS: fentaNYL Drip 2500mCg/250mlNS 250 ML IV SCH (16:00)
[2023-09-26] VITALS (99 sets, daily range): BP systolic 78–138; BP diastolic 36–74; PULSE 89–105; RESP 12–30; TEMP 98.8–99.7; O2SAT 96–100
[2023-09-26] MEDS: ALBUTEROL SULF 2.5 MG/0.5ML(0.5%) NEB SOLN NEB SCH ×6 (02:04→22:15)
[2023-09-26] MEDS: ACCU-CHEK COMFORT CURVE STRIP VI SCH ×5 (03:04→23:42)
[2023-09-26] MEDS: InsuLIN REG 1unit/0.01ml Soln (100units/ml) SC SCH ×6 (03:04→23:44)
[2023-09-26] MEDS: DexmedeTOMIDine 200 MCG in D5W 5% 48 ML IV SCH ×2 (03:34→14:15)
[2023-09-26] MEDS: VASOPRESSIN 20 UNITS in SODIUM CHL 0.9% 99 ML IV SCH (04:09)
[2023-09-26 04:18] LABS: Alanine Aminotransferase 91 U/L (7-40); Alkaline Phosphatase 118 U/L (46-116); Anion Gap 13 (5-15); BUN/Creatinine Ratio 20.1 (10.0-20.0); Blood Urea Nitrogen 40 mg/dL (9-23); Calcium 8.4 mg/dL (8.7-10.4); Carbon Dioxide 24 mmol/L (20-30); Chloride 111 mmol/L (98-107); Glucose 224 mg/dL (74-106); Potassium 3.5 mmol/L (3.5-5.1); Sodium 148 mmol/L (136-145)
[2023-09-26 04:20] LABS: Albumin 3.1 g/dL (3.2-4.8); Aspartate Aminotransferase 34 U/L (13-40); Bilirubin, Total 0.6 mg/dL (0.2-1.0); Total Protein 5.6 g/dL (5.7-8.2)
[2023-09-26] MEDS: METOCLOPRAMIDE HCL 5MG/ml INJ 2ml VIAL IV SCH ×2 (06:26→14:00)
[2023-09-26] MEDS: LACTULOSE 20Gm/30ML SOLN PO SCH ×2 (10:00→21:39)
[2023-09-26] MEDS: PANTOPRAZOLE 40 MG/10 ML VIAL INJ IV SCH (10:24)
[2023-09-26] MEDS: FUROSEMIDE 40 MG/4 ML VIAL IV SCH (10:24)
[2023-09-26] MEDS: AMIODARONE HCL 200 MG TAB PO SCH ×2 (10:25→21:39)
[2023-09-26] MEDS: CEFTRIAXONE SODIUM 2 GM in D5W 5% 100 ML IV SCH (10:28)
[2023-09-26] MEDS: SILVER SULFADIAZINE 1 % TOPICAL CREAM 50GM TOP SCH ×2 (10:41→21:39)
[2023-09-26 11:40] LABS: Base Excess 4.4 mmol/L (-2.0-2.0)
[2023-09-26] MEDS: NOREPINEPHRINE 8 MG/250ML KIT 250 ML IV SCH (12:30)
[2023-09-26 12:53] LABS: Base Excess 3.1 mmol/L (-2.0-2.0)
[2023-09-26] MEDS ORDERED: DEXTROSE (50%) 50ML SYRG IV PRN (15:15)
[2023-09-26] MEDS: fentaNYL Drip 2500mCg/250mlNS 250 ML IV SCH (16:00)
[2023-09-26] MEDS: VANCOMYCIN 500 MG in D5W 5% 100 ML IV SCH (17:11)
[2023-09-27] VITALS (81 sets, daily range): BP systolic 89–151; BP diastolic 45–68; PULSE 90–107; RESP 10–26; TEMP 98.6–99.3; O2SAT 89–100
[2023-09-27] MEDS: ALBUTEROL SULF 2.5 MG/0.5ML(0.5%) NEB SOLN NEB SCH ×6 (02:08→22:07)
[2023-09-27 03:50] LABS: Basophils # (auto) 0.2 10 ^3/uL (0-0.2); Basophils % (auto) 3.6 % (0.0-2.0); Eosinophils # (auto) 0.1 10 ^3/uL (0-0.8); Eosinophils % (auto) 1.2 % (0.0-7.0); Lymphocytes # (auto) 0.7 10 ^3/uL (0.4-5.4); Lymphocytes % (auto) 10.6 % (10.0-50.0); Mean Corpuscular Hemoglobin 31.8 pg (28.0-32.0); Mean Corpuscular Hgb Conc. 33.4 g/dL (32.0-36.0); Mean Corpuscular Volume 95.3 fL (80.0-100.0); Monocytes # (auto) 0.7 10 ^3/uL (0-1.3); Monocytes % (auto) 10.9 % (0.0-12.0); Neutrophils # (auto) 4.5 10 ^3/uL (1.6-8.6); Neutrophils % (auto) 73.7 % (37.0-80.0); Red Blood Cells 2.83 10^6/uL (4.5-5.90); Red Cell Distribution Width 14.8 % (11.8-14.3); White Blood Cell 6.1 10^3/uL (4.4-10.8)
[2023-09-27 03:59] LABS: Anion Gap 11 (5-15); Carbon Dioxide 27 mmol/L (20-30); Chloride 113 mmol/L (98-107); Potassium 2.8 mmol/L (3.5-5.1); Sodium 151 mmol/L (136-145)
[2023-09-27 04:01] LABS: Calcium 8.4 mg/dL (8.7-10.4)
[2023-09-27 04:04] LABS: Glucose 160 mg/dL (74-106)
[2023-09-27 04:05] LABS: BUN/Creatinine Ratio 18.3 (10.0-20.0); Blood Urea Nitrogen 36 mg/dL (9-23)
[2023-09-27] MEDS ORDERED: SOD CHL 0.45% 1,000 ML IV SCH (05:30)
[2023-09-27] MEDS: ACCU-CHEK COMFORT CURVE STRIP VI SCH ×4 (06:13→23:54)
[2023-09-27] MEDS: InsuLIN REG 1unit/0.01ml Soln (100units/ml) SC SCH ×4 (06:34→23:55)
[2023-09-27] MEDS ORDERED: POTASSIUM CHL 20MEQ/100ML 100 ML IV ONE (06:40)
[2023-09-27] MEDS: POTASSIUM CHL 20MEQ/100ML 100 ML IV SCH ×5 (06:47→19:23)
[2023-09-27] MEDS ORDERED: POTASSIUM CHL 20MEQ/100ML 200 ML IV ONE ×2 (08:46→17:15)
[2023-09-27] MEDS: LACTULOSE 20Gm/30ML SOLN PO SCH ×2 (10:00→21:42)
[2023-09-27] MEDS: AMIODARONE HCL 200 MG TAB PO SCH ×2 (10:00→21:42)
[2023-09-27] MEDS: PANTOPRAZOLE 40 MG/10 ML VIAL INJ IV SCH (11:30)
[2023-09-27] MEDS: FUROSEMIDE 40 MG/4 ML VIAL IV SCH (11:30)
[2023-09-27] MEDS: CEFTRIAXONE SODIUM 2 GM in D5W 5% 100 ML IV SCH (11:49)
[2023-09-27] MEDS: NOREPINEPHRINE 8 MG/250ML KIT 250 ML IV SCH (11:50)
[2023-09-27] MEDS: SILVER SULFADIAZINE 1 % TOPICAL CREAM 50GM TOP SCH ×2 (11:50→21:42)
[2023-09-27 15:14] LABS: Potassium 3.4 mmol/L (3.5-5.1)
[2023-09-27 15:21] LABS: Magnesium 1.6 mg/dL (1.6-2.6)
[2023-09-27] MEDS: VANCOMYCIN 500 MG in D5W 5% 100 ML IV SCH (16:22)
[2023-09-27] MEDS ORDERED: MAGNESIUM SULFATE 1GM/100ML 200 ML IV ONE (17:14)
[2023-09-27] MEDS: MAGNESIUM SULFATE 1GM/100ML 100 ML IV SCH ×2 (17:19→18:20)
[2023-09-28] VITALS (22 sets, daily range): BP systolic 105–134; BP diastolic 46–54; PULSE 91–102; RESP 18–23; TEMP 99–100.1; O2SAT 91–100
[2023-09-28] MEDS: ALBUTEROL SULF 2.5 MG/0.5ML(0.5%) NEB SOLN NEB SCH ×6 (02:10→22:03)
[2023-09-28] MEDS: MIDODRINE HCL 10 MG TAB PO SCH ×4 (04:32→22:02)
[2023-09-28] MEDS: ACCU-CHEK COMFORT CURVE STRIP VI SCH ×3 (06:18→18:17)
[2023-09-28] MEDS: InsuLIN REG 1unit/0.01ml Soln (100units/ml) SC SCH ×3 (06:21→18:18)
[2023-09-28 06:39] LABS: Anion Gap 10 (5-15); Calcium 8.6 mg/dL (8.7-10.4); Carbon Dioxide 28 mmol/L (20-30); Chloride 115 mmol/L (98-107); Potassium 3.6 mmol/L (3.5-5.1); Sodium 153 mmol/L (136-145)
[2023-09-28 06:45] LABS: BUN/Creatinine Ratio 15.5 (10.0-20.0); Blood Urea Nitrogen 30 mg/dL (9-23); Glucose 169 mg/dL (74-106)
[2023-09-28 07:36] LABS: Hematocrit 30.5 % (41.0-53.0); Hemoglobin 9.7 g/dL (13.5-17.5); Mean Corpuscular Hgb Conc. 31.8 g/dL (32.0-36.0); Mean Corpuscular Volume 97.5 fL (80.0-100.0); Red Blood Cells 3.12 10^6/uL (4.5-5.90); Red Cell Distribution Width 15.1 % (11.8-14.3); White Blood Cell 7.4 10^3/uL (4.4-10.8)
[2023-09-28 07:49] LABS: Basophils % (manual) 0 (0.0-2.0); Blast Cells 0; Metamyelocytes % 0; Myelocytes % 0; Promyelocytes % 0; Reactive Lymphocytes 0
[2023-09-28 09:00] LABS: Band Neutrophils % (manual) 1; Eosinophils % (manual) 1 (0-7); Lymphocytes % (manual) 8 (10.0-50.0); Monocytes % (manual) 6 (0-12)
[2023-09-28 09:01] LABS: Platelet Estimate Adequate
[2023-09-28] MEDS ORDERED: FUROSEMIDE 20 MG/2 ML VIAL IV ONE (09:30)
[2023-09-28] MEDS: LACTULOSE 20Gm/30ML SOLN PO SCH ×2 (10:00→22:00)
[2023-09-28] MEDS: PANTOPRAZOLE 40 MG/10 ML VIAL INJ IV SCH (10:49)
[2023-09-28] MEDS: AMIODARONE HCL 200 MG TAB PO SCH ×2 (10:49→22:02)
[2023-09-28] MEDS: CEFTRIAXONE SODIUM 2 GM in D5W 5% 100 ML IV SCH (10:50)
[2023-09-28] MEDS: SILVER SULFADIAZINE 1 % TOPICAL CREAM 50GM TOP SCH ×2 (10:51→22:02)
[2023-09-28] MEDS: Glucerna 1.2 Cal 1Liter BOTTLE GT SCH (12:46)
[2023-09-28] MEDS: D5W 5% 1,000 ML IV SCH (13:14)
[2023-09-28] MEDS: VANCOMYCIN 500 MG in D5W 5% 100 ML IV SCH (17:00)
[2023-09-29] VITALS (15 sets, daily range): BP systolic 121–138; BP diastolic 27–88; PULSE 83–94; RESP 18–96; TEMP 96.8–99.6; O2SAT 22–100
[2023-09-29] MEDS: ACCU-CHEK COMFORT CURVE STRIP VI SCH ×5 (00:38→23:48)
[2023-09-29] MEDS: InsuLIN REG 1unit/0.01ml Soln (100units/ml) SC SCH ×5 (00:56→23:49)
[2023-09-29] MEDS: ALBUTEROL SULF 2.5 MG/0.5ML(0.5%) NEB SOLN NEB SCH ×4 (02:34→19:12)
[2023-09-29] MEDS: MIDODRINE HCL 10 MG TAB PO SCH (05:44)
[2023-09-29] MEDS: D5W 5% 1,000 ML IV SCH (06:25)
[2023-09-29 06:28] LABS: Chloride 113 mmol/L (98-107); Potassium 3.5 mmol/L (3.5-5.1); Sodium 152 mmol/L (136-145)
[2023-09-29 06:29] LABS: Anion Gap 10 (5-15); Calcium 8.9 mg/dL (8.5-10.1); Carbon Dioxide 29 mmol/L (20-30)
[2023-09-29 06:33] LABS: Basophils # (auto) 0.2 10 ^3/uL (0-0.2); Basophils % (auto) 3.1 % (0.0-2.0); Eosinophils # (auto) 0.2 10 ^3/uL (0-0.8); Eosinophils % (auto) 3.6 % (0.0-7.0); Hematocrit 30.8 % (41.0-53.0); Hemoglobin 9.8 g/dL (13.5-17.5); Lymphocytes # (auto) 0.8 10 ^3/uL (0.4-5.4); Lymphocytes % (auto) 13.3 % (10.0-50.0); Mean Corpuscular Hemoglobin 31.2 pg (28.0-32.0); Mean Corpuscular Hgb Conc. 31.9 g/dL (32.0-36.0); Monocytes # (auto) 0.6 10 ^3/uL (0-1.3); Monocytes % (auto) 8.7 % (0.0-12.0); Neutrophils # (auto) 4.5 10 ^3/uL (1.6-8.6); Neutrophils % (auto) 71.3 % (37.0-80.0); Nucleated Red Blood Cells % 0.2 %; Red Blood Cells 3.14 10^6/uL (4.5-5.90); Red Cell Distribution Width 15.1 % (11.8-14.3); White Blood Cell 6.4 10^3/uL (4.4-10.8)
[2023-09-29 06:34] LABS: BUN/Creatinine Ratio 15.4 (10.0-20.0); Blood Urea Nitrogen 32 mg/dL (9-23); Glucose 261 mg/dL (74-106)
[2023-09-29] MEDS: LACTULOSE 20Gm/30ML SOLN PO SCH ×2 (10:00→22:00)
[2023-09-29] MEDS: SILVER SULFADIAZINE 1 % TOPICAL CREAM 50GM TOP SCH ×2 (10:18→21:40)
[2023-09-29] MEDS: CEFTRIAXONE SODIUM 2 GM in D5W 5% 100 ML IV SCH (10:18)
[2023-09-29] MEDS: PANTOPRAZOLE 40 MG/10 ML VIAL INJ IV SCH (10:18)
[2023-09-29] MEDS: AMIODARONE HCL 200 MG TAB PO SCH ×2 (10:18→21:40)
[2023-09-29] MEDS: FREE WATER GT SCH ×3 (11:28→23:49)
[2023-09-29] MEDS ORDERED: ALBUTEROL SULF 2.5 MG/0.5ML(0.5%) NEB SOLN NEB SCH (12:00)
[2023-09-29] MEDS: DOXYCYCLINE 100 MG TAB/CAP PO SCH (21:40)
[2023-09-30] VITALS (13 sets, daily range): BP systolic 95–142; BP diastolic 53–57; PULSE 78–92; RESP 16–20; TEMP 97.8–99.3; O2SAT 9–99
[2023-09-30] MEDS: D5W 5% 1,000 ML IV SCH (06:02)
[2023-09-30] MEDS: ACCU-CHEK COMFORT CURVE STRIP VI SCH ×5 (06:08→19:27)
[2023-09-30] MEDS: FREE WATER GT SCH ×3 (06:09→16:57)
[2023-09-30] MEDS: InsuLIN REG 1unit/0.01ml Soln (100units/ml) SC SCH ×3 (06:09→16:58)
[2023-09-30 06:20] LABS: Basophils # (auto) 0.2 10 ^3/uL (0-0.2); Basophils % (auto) 2.8 % (0.0-2.0); Eosinophils # (auto) 0.3 10 ^3/uL (0-0.8); Eosinophils % (auto) 5.3 % (0.0-7.0); Hematocrit 27.8 % (41.0-53.0); Lymphocytes # (auto) 0.9 10 ^3/uL (0.4-5.4); Lymphocytes % (auto) 14.8 % (10.0-50.0); Mean Corpuscular Hgb Conc. 32.5 g/dL (32.0-36.0); Mean Corpuscular Volume 95.4 fL (80.0-100.0); Monocytes # (auto) 0.6 10 ^3/uL (0-1.3); Monocytes % (auto) 8.8 % (0.0-12.0); Neutrophils # (auto) 4.3 10 ^3/uL (1.6-8.6); Neutrophils % (auto) 68.3 % (37.0-80.0); Red Blood Cells 2.91 10^6/uL (4.5-5.90); Red Cell Distribution Width 15.2 % (11.8-14.3); White Blood Cell 6.3 10^3/uL (4.4-10.8)
[2023-09-30 06:33] LABS: Alanine Aminotransferase 47 U/L (7-40); Alkaline Phosphatase 108 U/L (46-116); Anion Gap 9 (5-15); Aspartate Aminotransferase 38 U/L (13-40); BUN/Creatinine Ratio 13.7 (10.0-20.0); Blood Urea Nitrogen 25 mg/dL (9-23); Calcium 8.5 mg/dL (8.5-10.1); Carbon Dioxide 28 mmol/L (20-30); Chloride 111 mmol/L (98-107); Glucose 230 mg/dL (74-106); Potassium 3.3 mmol/L (3.5-5.1); Sodium 148 mmol/L (136-145)
[2023-09-30 06:34] LABS: Bilirubin, Total 0.5 mg/dL (0.2-1.0); Total Protein 5.4 g/dL (5.7-8.2)
[2023-09-30] MEDS: ALBUTEROL SULF 2.5 MG/0.5ML(0.5%) NEB SOLN NEB SCH ×3 (07:12→19:52)
[2023-09-30] MEDS ORDERED: DEXTROSE (50%) 50ML SYRG IV PRN (09:45)
[2023-09-30] MEDS ORDERED: POTASSIUM EFFERVESENT TAB 25 MEQ GT ONE (09:45)
[2023-09-30] MEDS: LACTULOSE 20Gm/30ML SOLN PO SCH ×2 (09:49→21:13)
[2023-09-30] MEDS: PANTOPRAZOLE 40 MG/10 ML VIAL INJ IV SCH (10:05)
[2023-09-30] MEDS: DOXYCYCLINE 100 MG TAB/CAP PO SCH ×2 (10:06→21:11)
[2023-09-30] MEDS: AMIODARONE HCL 200 MG TAB PO SCH ×2 (10:06→21:10)
[2023-09-30] MEDS: SILVER SULFADIAZINE 1 % TOPICAL CREAM 50GM TOP SCH ×2 (10:06→21:18)
[2023-09-30] MEDS: Glucerna 1.2 Cal 1Liter BOTTLE GT SCH (19:45)
[2023-10-01] VITALS (15 sets, daily range): BP systolic 124–153; BP diastolic 50–72; PULSE 61–100; RESP 16–24; TEMP 97.4–99.2; O2SAT 88–99
[2023-10-01] MEDS: FREE WATER GT SCH ×2 (00:02→05:16)
[2023-10-01] MEDS: ACCU-CHEK COMFORT CURVE STRIP VI SCH ×7 (00:02→22:16)
[2023-10-01] MEDS: InsuLIN REG 1unit/0.01ml Soln (100units/ml) SC SCH ×5 (00:03→22:18)
[2023-10-01 06:49] LABS: Anion Gap 10 (5-15); Carbon Dioxide 29 mmol/L (20-30); Chloride 111 mmol/L (98-107); Potassium 3.5 mmol/L (3.5-5.1); Sodium 150 mmol/L (136-145)
[2023-10-01 06:55] LABS: Glucose 183 mg/dL (74-106)
[2023-10-01 06:56] LABS: BUN/Creatinine Ratio 13.9 (10.0-20.0); Basophils # (auto) 0.1 10 ^3/uL (0-0.2); Basophils % (auto) 2.1 % (0.0-2.0); Blood Urea Nitrogen 24 mg/dL (9-23); Eosinophils # (auto) 0.3 10 ^3/uL (0-0.8); Eosinophils % (auto) 5.7 % (0.0-7.0); Hemoglobin 9.6 g/dL (13.5-17.5); Lymphocytes % (auto) 20.9 % (10.0-50.0); Mean Corpuscular Hgb Conc. 32.1 g/dL (32.0-36.0); Mean Corpuscular Volume 96.5 fL (80.0-100.0); Monocytes # (auto) 0.5 10 ^3/uL (0-1.3); Monocytes % (auto) 9.1 % (0.0-12.0); Neutrophils # (auto) 3.1 10 ^3/uL (1.6-8.6); Neutrophils % (auto) 62.2 % (37.0-80.0); Nucleated Red Blood Cells % 0.1 %
[2023-10-01] MEDS: ALBUTEROL SULF 2.5 MG/0.5ML(0.5%) NEB SOLN NEB SCH ×3 (07:17→18:14)
[2023-10-01] MEDS: cefTRIAXone 1GM/50ML D5W 50 ML IV SCH (09:34)
[2023-10-01] MEDS: PANTOPRAZOLE 40 MG/10 ML VIAL INJ IV SCH (09:36)
[2023-10-01] MEDS: SILVER SULFADIAZINE 1 % TOPICAL CREAM 50GM TOP SCH ×2 (09:41→22:16)
[2023-10-01] MEDS: LACTULOSE 20Gm/30ML SOLN NG SCH ×2 (11:58→22:15)
[2023-10-01] MEDS: DOXYCYCLINE 100 MG TAB/CAP NG SCH ×2 (11:59→22:15)
[2023-10-01] MEDS: AMIODARONE HCL 200 MG TAB NG SCH ×2 (11:59→22:15)
[2023-10-01] MEDS ORDERED: FREE WATER NG SCH (12:00)
[2023-10-01] MEDS: FREE WATER NG SCH ×3 (14:30→22:15)
[2023-10-02] VITALS (13 sets, daily range): BP systolic 102–148; BP diastolic 44–70; PULSE 77–100; RESP 16–22; TEMP 97.9–98.5; O2SAT 90–100
[2023-10-02] MEDS: FREE WATER NG SCH ×7 (06:00→23:22)
[2023-10-02] MEDS: InsuLIN REG 1unit/0.01ml Soln (100units/ml) SC SCH ×4 (06:00→23:48)
[2023-10-02 06:23] LABS: Chloride 115 mmol/L (98-107); Potassium 3.4 mmol/L (3.5-5.1); Sodium 150 mmol/L (136-145)
[2023-10-02 06:24] LABS: Anion Gap 7 (5-15); Carbon Dioxide 28 mmol/L (20-30)
[2023-10-02 06:29] LABS: Glucose 195 mg/dL (74-106)
[2023-10-02 06:30] LABS: BUN/Creatinine Ratio 15.7 (10.0-20.0); Blood Urea Nitrogen 26 mg/dL (9-23)
[2023-10-02] MEDS: ACCU-CHEK COMFORT CURVE STRIP VI SCH ×4 (06:39→23:46)
[2023-10-02] MEDS: ALBUTEROL SULF 2.5 MG/0.5ML(0.5%) NEB SOLN NEB SCH ×2 (08:36→18:26)
[2023-10-02] MEDS: cefTRIAXone 1GM/50ML D5W 50 ML IV SCH (09:05)
[2023-10-02] MEDS: DOXYCYCLINE 100 MG TAB/CAP NG SCH ×2 (09:33→23:18)
[2023-10-02] MEDS: AMIODARONE HCL 200 MG TAB NG SCH ×2 (09:33→23:18)
[2023-10-02] MEDS: SILVER SULFADIAZINE 1 % TOPICAL CREAM 50GM TOP SCH ×2 (09:33→23:18)
[2023-10-02] MEDS: PANTOPRAZOLE 40 MG/10 ML VIAL INJ IV SCH (09:33)
[2023-10-02] MEDS: LACTULOSE 20Gm/30ML SOLN NG SCH ×2 (09:34→23:19)
[2023-10-02] MEDS ORDERED: POTASSIUM EFFERVESENT TAB 25 MEQ GT ONE (10:00)
[2023-10-02] MEDS: Glucerna 1.2 Cal 1Liter BOTTLE GT SCH (16:24)
[2023-10-03] VITALS (15 sets, daily range): BP systolic 128–149; BP diastolic 55–62; PULSE 77–95; RESP 16–20; TEMP 97.8–99; O2SAT 95–100
[2023-10-03] MEDS: FREE WATER NG SCH ×6 (02:02→22:01)
[2023-10-03] MEDS: ACCU-CHEK COMFORT CURVE STRIP VI SCH ×4 (06:07→23:57)
[2023-10-03] MEDS: InsuLIN REG 1unit/0.01ml Soln (100units/ml) SC SCH ×3 (06:08→18:00)
[2023-10-03] MEDS: ALBUTEROL SULF 2.5 MG/0.5ML(0.5%) NEB SOLN NEB SCH ×3 (06:16→18:18)
[2023-10-03 06:32] LABS: Chloride 114 mmol/L (98-107); Potassium 3.3 mmol/L (3.5-5.1); Sodium 149 mmol/L (136-145)
[2023-10-03 06:33] LABS: Anion Gap 11 (5-15); Calcium 8.8 mg/dL (8.5-10.1); Carbon Dioxide 24 mmol/L (20-30)
[2023-10-03 06:38] LABS: BUN/Creatinine Ratio 8.9 (10.0-20.0); Blood Urea Nitrogen 17 mg/dL (9-23); Glucose 206 mg/dL (74-106)
[2023-10-03] MEDS: AMIODARONE HCL 200 MG TAB NG SCH ×2 (09:23→21:59)
[2023-10-03] MEDS: LACTULOSE 20Gm/30ML SOLN NG SCH ×2 (09:23→21:59)
[2023-10-03] MEDS: DOXYCYCLINE 100 MG TAB/CAP NG SCH ×2 (09:23→21:59)
[2023-10-03] MEDS: PANTOPRAZOLE 40 MG/10 ML VIAL INJ IV SCH (09:23)
[2023-10-03] MEDS: cefTRIAXone 1GM/50ML D5W 50 ML IV SCH (09:23)
[2023-10-03] MEDS: SILVER SULFADIAZINE 1 % TOPICAL CREAM 50GM TOP SCH ×2 (09:24→22:00)
[2023-10-03] MEDS ORDERED: POTASSIUM EFFERVESENT TAB 25 MEQ GT ONE (10:30)
[2023-10-03] MEDS ORDERED: POTASSIUM CHL 20MEQ/100ML 100 ML IV SCH (11:30)
[2023-10-03] MEDS: SOD CHL 0.45% 1,000 ML IV SCH (11:30)
[2023-10-03] MEDS ORDERED: D5W 5% 1,000 ML IV SCH (11:30)
[2023-10-04] VITALS (10 sets, daily range): BP systolic 122–140; BP diastolic 27–63; PULSE 76–94; RESP 17–20; TEMP 97.7–98.4; O2SAT 94–100
[2023-10-04] MEDS: InsuLIN REG 1unit/0.01ml Soln (100units/ml) SC SCH ×4 (00:02→17:56)
[2023-10-04] MEDS: SOD CHL 0.45% 1,000 ML IV SCH (00:15)
[2023-10-04] MEDS: FREE WATER NG SCH ×2 (02:08→06:00)
[2023-10-04] MEDS: ACCU-CHEK COMFORT CURVE STRIP VI SCH ×3 (06:00→17:55)
[2023-10-04] MEDS: ALBUTEROL SULF 2.5 MG/0.5ML(0.5%) NEB SOLN NEB SCH ×3 (07:05→18:49)
[2023-10-04] MEDS: cefTRIAXone 1GM/50ML D5W 50 ML IV SCH (09:08)
[2023-10-04] MEDS: PANTOPRAZOLE 40 MG/10 ML VIAL INJ IV SCH (10:09)
[2023-10-04] MEDS: LACTULOSE 20Gm/30ML SOLN PO SCH ×2 (10:33→22:16)
[2023-10-04] MEDS: SILVER SULFADIAZINE 1 % TOPICAL CREAM 50GM TOP SCH ×2 (10:34→22:17)
[2023-10-04] MEDS: DOXYCYCLINE 100 MG TAB/CAP PO SCH ×2 (10:34→22:16)
[2023-10-04] MEDS: AMIODARONE HCL 200 MG TAB PO SCH ×2 (10:34→22:16)
[2023-10-04 11:55] LABS: Chloride 114 mmol/L (98-107); Sodium 149 mmol/L (136-145)
[2023-10-04 11:58] LABS: Calcium 8.3 mg/dL (8.5-10.1); Carbon Dioxide 25 mmol/L (20-30)
[2023-10-04 12:03] LABS: Glucose 262 mg/dL (74-106)
[2023-10-04 12:17] LABS: Anion Gap 10 (5-15); BUN/Creatinine Ratio 12.6 (10.0-20.0); Blood Urea Nitrogen 20 mg/dL (9-23); Potassium 3.3 mmol/L (3.5-5.1)
[2023-10-04] MEDS ORDERED: POTASSIUM CHL 20MEQ/100ML 100 ML IV ONE (12:45)
[2023-10-04] MEDS: POTASSIUM CHLORIDE 40 MEQ in D5W/LACTATED RINGERS 1,000 ML IV SCH (18:36)
[2023-10-05] VITALS (14 sets, daily range): BP systolic 104–149; BP diastolic 51–75; PULSE 85–98; RESP 16–20; TEMP 97.6–98; O2SAT 94–100
[2023-10-05] MEDS: ACCU-CHEK COMFORT CURVE STRIP VI SCH ×5 (01:17→23:12)
[2023-10-05] MEDS: InsuLIN REG 1unit/0.01ml Soln (100units/ml) SC SCH ×5 (01:21→23:15)
[2023-10-05] MEDS: POTASSIUM CHLORIDE 40 MEQ in D5W/LACTATED RINGERS 1,000 ML IV SCH ×2 (03:12→11:16)
[2023-10-05 06:43] LABS: Basophils # (auto) 0.1 10 ^3/uL (0-0.2); Basophils % (auto) 1.5 % (0.0-2.0); Eosinophils # (auto) 0.2 10 ^3/uL (0-0.8); Eosinophils % (auto) 5.4 % (0.0-7.0); Hematocrit 27.8 % (41.0-53.0); Hemoglobin 8.9 g/dL (13.5-17.5); Lymphocytes # (auto) 0.7 10 ^3/uL (0.4-5.4); Lymphocytes % (auto) 17.1 % (10.0-50.0); Mean Corpuscular Volume 96.9 fL (80.0-100.0); Monocytes # (auto) 0.7 10 ^3/uL (0-1.3); Monocytes % (auto) 15.5 % (0.0-12.0); Neutrophils # (auto) 2.6 10 ^3/uL (1.6-8.6); Neutrophils % (auto) 60.5 % (37.0-80.0); Nucleated Red Blood Cells % 0.3 %; Red Blood Cells 2.87 10^6/uL (4.5-5.90); Red Cell Distribution Width 16.3 % (11.8-14.3); White Blood Cell 4.4 10^3/uL (4.4-10.8)
[2023-10-05] MEDS: ALBUTEROL SULF 2.5 MG/0.5ML(0.5%) NEB SOLN NEB SCH ×3 (07:30→18:37)
[2023-10-05 08:17] LABS: Anion Gap 10 (5-15); Carbon Dioxide 24 mmol/L (20-30); Chloride 117 mmol/L (98-107); Sodium 151 mmol/L (136-145)
[2023-10-05 08:18] LABS: Calcium 8.7 mg/dL (8.5-10.1)
[2023-10-05 08:23] LABS: BUN/Creatinine Ratio 10.3 (10.0-20.0); Blood Urea Nitrogen 15 mg/dL (9-23)
[2023-10-05 08:25] LABS: Phosphorus 2.3 mg/dL (2.4-5.1)
[2023-10-05 08:32] LABS: Glucose 73 mg/dL (74-106)
[2023-10-05 08:59] LABS: Magnesium 1.6 mg/dL (1.6-2.6)
[2023-10-05] MEDS: cefTRIAXone 1GM/50ML D5W 50 ML IV SCH (09:13)
[2023-10-05] MEDS: LACTULOSE 20Gm/30ML SOLN PO SCH ×2 (09:50→21:41)
[2023-10-05] MEDS: PANTOPRAZOLE 40 MG/10 ML VIAL INJ IV SCH (09:50)
[2023-10-05] MEDS: SILVER SULFADIAZINE 1 % TOPICAL CREAM 50GM TOP SCH ×2 (09:50→21:52)
[2023-10-05] MEDS: ENOXAPARIN SOD 30 MG/0.3 ML SYRINGE SC SCH (09:50)
[2023-10-05] MEDS: DOXYCYCLINE 100 MG TAB/CAP PO SCH ×2 (09:51→21:52)
[2023-10-05] MEDS: AMIODARONE HCL 200 MG TAB PO SCH ×2 (09:51→21:52)
[2023-10-05] MEDS: D5W 5% 1,000 ML IV SCH ×2 (11:30→23:18)
[2023-10-05] MEDS ORDERED: ACETAMINOPHEN 325 MG TAB PO PRN (12:15)
[2023-10-06] VITALS (13 sets, daily range): BP systolic 104–144; BP diastolic 46–64; PULSE 80–95; RESP 18–22; TEMP 36.9; O2SAT 91–100
[2023-10-06] MEDS: ACCU-CHEK COMFORT CURVE STRIP VI SCH ×3 (06:20→18:06)
[2023-10-06] MEDS: InsuLIN REG 1unit/0.01ml Soln (100units/ml) SC SCH ×3 (06:21→18:30)
[2023-10-06 06:44] LABS: Basophils # (auto) 0.1 10 ^3/uL (0-0.2); Basophils % (auto) 1.3 % (0.0-2.0); Eosinophils # (auto) 0.4 10 ^3/uL (0-0.8); Hematocrit 27.5 % (41.0-53.0); Hemoglobin 8.8 g/dL (13.5-17.5); Lymphocytes # (auto) 0.8 10 ^3/uL (0.4-5.4); Lymphocytes % (auto) 15.9 % (10.0-50.0); Mean Corpuscular Hemoglobin 30.7 pg (28.0-32.0); Mean Corpuscular Hgb Conc. 32.1 g/dL (32.0-36.0); Mean Corpuscular Volume 95.6 fL (80.0-100.0); Monocytes # (auto) 0.7 10 ^3/uL (0-1.3); Monocytes % (auto) 13.3 % (0.0-12.0); Neutrophils # (auto) 3.2 10 ^3/uL (1.6-8.6); Neutrophils % (auto) 62.5 % (37.0-80.0); Nucleated Red Blood Cells % 0.1 %; Red Blood Cells 2.88 10^6/uL (4.5-5.90); Red Cell Distribution Width 16.5 % (11.8-14.3); White Blood Cell 5.1 10^3/uL (4.4-10.8)
[2023-10-06] MEDS: ALBUTEROL SULF 2.5 MG/0.5ML(0.5%) NEB SOLN NEB SCH ×3 (06:57→19:08)
[2023-10-06 07:03] LABS: Alanine Aminotransferase 31 U/L (7-40); Albumin 2.9 g/dL (3.2-4.8); Alkaline Phosphatase 102 U/L (46-116); Anion Gap 8 (5-15); Aspartate Aminotransferase 20 U/L (13-40); Blood Urea Nitrogen 13 mg/dL (9-23); Calcium 7.9 mg/dL (8.7-10.4); Carbon Dioxide 23 mmol/L (20-30); Chloride 110 mmol/L (98-107); Glucose 157 mg/dL (74-106); Magnesium 1.5 mg/dL (1.6-2.6); Potassium 3.9 mmol/L (3.5-5.1); Sodium 141 mmol/L (136-145)
[2023-10-06 07:04] LABS: Bilirubin, Total 0.8 mg/dL (0.2-1.0); Phosphorus 2.5 mg/dL (2.4-5.1); Total Protein 5.4 g/dL (5.7-8.2)
[2023-10-06] MEDS: LACTULOSE 20Gm/30ML SOLN PO SCH ×3 (09:31→20:23)
[2023-10-06] MEDS: PANTOPRAZOLE 40 MG/10 ML VIAL INJ IV SCH (09:31)
[2023-10-06] MEDS: DOXYCYCLINE 100 MG TAB/CAP PO SCH ×2 (09:31→21:16)
[2023-10-06] MEDS: cefTRIAXone 1GM/50ML D5W 50 ML IV SCH (09:31)
[2023-10-06] MEDS: ENOXAPARIN SOD 30 MG/0.3 ML SYRINGE SC SCH (09:32)
[2023-10-06] MEDS: AMIODARONE HCL 200 MG TAB PO SCH ×2 (09:32→21:08)
[2023-10-06] MEDS: SILVER SULFADIAZINE 1 % TOPICAL CREAM 50GM TOP SCH ×2 (09:33→22:00)
[2023-10-06] MEDS: SOD CHL 0.45% 1,000 ML IV SCH (13:45)
[2023-10-06] MEDS: MAGNESIUM SULFATE 1GM/100ML 100 ML IV SCH ×3 (15:00→16:51)
[2023-10-06] MEDS ORDERED: MAGNESIUM SULFATE 1GM/100ML 100 ML IV SCH (19:00)
[2023-10-06 19:41] LABS: Folate (Folic Acid) 13.09 ng/mL (>5.38)
[2023-10-07] VITALS (14 sets, daily range): BP systolic 93–134; BP diastolic 42–85; PULSE 74–102; RESP 14–20; TEMP 97.4–98.9; O2SAT 94–100
[2023-10-07] MEDS: ACCU-CHEK COMFORT CURVE STRIP VI SCH ×8 (00:12→22:28)
[2023-10-07] MEDS: InsuLIN REG 1unit/0.01ml Soln (100units/ml) SC SCH ×5 (00:12→22:30)
[2023-10-07] MEDS: SOD CHL 0.45% 1,000 ML IV SCH (03:05)
[2023-10-07] MEDS: ALBUTEROL SULF 2.5 MG/0.5ML(0.5%) NEB SOLN NEB SCH ×3 (05:49→19:00)
[2023-10-07] MEDS: MIDODRINE HCL 10 MG TAB PO SCH ×3 (06:37→21:37)
[2023-10-07 07:49] LABS: Base Excess -0.1 mmol/L (-2.0-2.0)
[2023-10-07 08:06] LABS: Basophils # (auto) 0 10 ^3/uL (0-0.2); Basophils % (auto) 0.5 % (0.0-2.0); Eosinophils # (auto) 0.2 10 ^3/uL (0-0.8); Eosinophils % (auto) 3.8 % (0.0-7.0); Hematocrit 28.3 % (41.0-53.0); Hemoglobin 8.8 g/dL (13.5-17.5); Lymphocytes # (auto) 0.6 10 ^3/uL (0.4-5.4); Lymphocytes % (auto) 12.7 % (10.0-50.0); Mean Corpuscular Hemoglobin 30.7 pg (28.0-32.0); Monocytes # (auto) 0.8 10 ^3/uL (0-1.3); Neutrophils # (auto) 3.4 10 ^3/uL (1.6-8.6); Nucleated Red Blood Cells % 0.1 %; Red Blood Cells 2.86 10^6/uL (4.5-5.90); Red Cell Distribution Width 17.7 % (11.8-14.3)
[2023-10-07 08:14] LABS: Chloride 108 mmol/L (98-107); Sodium 138 mmol/L (136-145)
[2023-10-07 08:15] LABS: Anion Gap 7 (5-15); Calcium 8.1 mg/dL (8.5-10.1); Carbon Dioxide 23 mmol/L (20-30)
[2023-10-07 08:20] LABS: BUN/Creatinine Ratio 8.6 (10.0-20.0); Blood Urea Nitrogen 13 mg/dL (9-23); Glucose 199 mg/dL (74-106)
[2023-10-07 08:22] LABS: Phosphorus 3.2 mg/dL (2.4-5.1)
[2023-10-07] MEDS: PANTOPRAZOLE 40 MG/10 ML VIAL INJ IV SCH (09:46)
[2023-10-07] MEDS: LACTULOSE 20Gm/30ML SOLN PO SCH ×2 (09:46→21:38)
[2023-10-07] MEDS: cefTRIAXone 1GM/50ML D5W 50 ML IV SCH (09:47)
[2023-10-07] MEDS: ENOXAPARIN SOD 30 MG/0.3 ML SYRINGE SC SCH (09:47)
[2023-10-07] MEDS: SILVER SULFADIAZINE 1 % TOPICAL CREAM 50GM TOP SCH ×2 (09:47→21:46)
[2023-10-07] MEDS: AMIODARONE HCL 200 MG TAB PO SCH ×2 (09:48→21:37)
[2023-10-07] MEDS: DOXYCYCLINE 100 MG TAB/CAP PO SCH ×2 (09:48→21:38)
[2023-10-07] MEDS ORDERED: DEXTROSE (50%) 50ML SYRG IV PRN (11:00)
[2023-10-07] MEDS ORDERED: FUROSEMIDE 20 MG TAB PO ONE (11:00)
[2023-10-07] MEDS: Glucerna Carbsteady SHAKE Chocolate 8oz PO SCH ×2 (14:31→18:33)
[2023-10-08] VITALS (9 sets, daily range): BP systolic 127–157; BP diastolic 57–60; PULSE 70–85; RESP 16–22; TEMP 97.7–98.5; O2SAT 95–99
[2023-10-08] MEDS: MIDODRINE HCL 10 MG TAB PO SCH ×3 (06:00→21:25)
[2023-10-08] MEDS: ACCU-CHEK COMFORT CURVE STRIP VI SCH ×7 (06:00→21:41)
[2023-10-08] MEDS: InsuLIN REG 1unit/0.01ml Soln (100units/ml) SC SCH ×4 (06:06→21:46)
[2023-10-08] MEDS: ALBUTEROL SULF 2.5 MG/0.5ML(0.5%) NEB SOLN NEB SCH ×3 (06:12→19:36)
[2023-10-08 07:09] LABS: Chloride 108 mmol/L (98-107); Potassium 4.3 mmol/L (3.5-5.1); Sodium 140 mmol/L (136-145)
[2023-10-08 07:10] LABS: Anion Gap 7 (5-15); Calcium 8.2 mg/dL (8.5-10.1); Carbon Dioxide 25 mmol/L (20-30)
[2023-10-08 07:15] LABS: BUN/Creatinine Ratio 11.3 (10.0-20.0); Blood Urea Nitrogen 18 mg/dL (9-23); Glucose 151 mg/dL (74-106)
[2023-10-08] MEDS: AMIODARONE HCL 200 MG TAB PO SCH ×2 (09:06→21:24)
[2023-10-08] MEDS: DOXYCYCLINE 100 MG TAB/CAP PO SCH ×2 (09:07→21:23)
[2023-10-08] MEDS: cefTRIAXone 1GM/50ML D5W 50 ML IV SCH (09:09)
[2023-10-08] MEDS: ENOXAPARIN SOD 30 MG/0.3 ML SYRINGE SC SCH (09:09)
[2023-10-08] MEDS: SILVER SULFADIAZINE 1 % TOPICAL CREAM 50GM TOP SCH ×2 (09:20→21:33)
[2023-10-08] MEDS: LACTULOSE 20Gm/30ML SOLN PO SCH ×2 (09:21→21:31)
[2023-10-08] MEDS: Glucerna Carbsteady SHAKE Chocolate 8oz PO SCH ×3 (09:21→18:33)
[2023-10-08] MEDS ORDERED: FUROSEMIDE 20 MG TAB PO SCH (10:00)
[2023-10-08] MEDS: FUROSEMIDE 20 MG TAB PO SCH (11:08)
[2023-10-09] VITALS (13 sets, daily range): BP systolic 104–152; BP diastolic 41–66; PULSE 69–83; RESP 16–22; TEMP 97.9–98.6; O2SAT 94–100
[2023-10-09] MEDS: MIDODRINE HCL 10 MG TAB PO SCH (06:12)
[2023-10-09] MEDS: ACCU-CHEK COMFORT CURVE STRIP VI SCH ×8 (06:17→21:30)
[2023-10-09] MEDS: InsuLIN REG 1unit/0.01ml Soln (100units/ml) SC SCH ×4 (06:21→21:49)
[2023-10-09] MEDS: ALBUTEROL SULF 2.5 MG/0.5ML(0.5%) NEB SOLN NEB SCH ×3 (06:55→18:24)
[2023-10-09] MEDS: LACTULOSE 20Gm/30ML SOLN PO SCH ×2 (10:00→22:00)
[2023-10-09] MEDS: Glucerna Carbsteady SHAKE Chocolate 8oz PO SCH ×3 (12:43→18:10)
[2023-10-09] MEDS: AMIODARONE HCL 200 MG TAB PO SCH ×2 (12:44→21:45)
[2023-10-09] MEDS: FUROSEMIDE 20 MG TAB PO SCH (12:48)
[2023-10-09] MEDS: ENOXAPARIN SOD 30 MG/0.3 ML SYRINGE SC SCH (12:48)
[2023-10-09] MEDS: SILVER SULFADIAZINE 1 % TOPICAL CREAM 50GM TOP SCH ×2 (12:49→22:09)
[2023-10-10] VITALS (9 sets, daily range): BP systolic 99–130; BP diastolic 49–61; PULSE 69–81; RESP 16–18; TEMP 36.9; O2SAT 92–97
[2023-10-10] MEDS: ACCU-CHEK COMFORT CURVE STRIP VI SCH ×5 (06:00→11:53)
[2023-10-10] MEDS: InsuLIN REG 1unit/0.01ml Soln (100units/ml) SC SCH ×2 (06:21→11:20)
[2023-10-10] MEDS: ALBUTEROL SULF 2.5 MG/0.5ML(0.5%) NEB SOLN NEB SCH ×2 (06:24→12:46)
[2023-10-10] MEDS: Glucerna Carbsteady SHAKE Chocolate 8oz PO SCH ×2 (08:15→11:53)
[2023-10-10] MEDS: LACTULOSE 20Gm/30ML SOLN PO SCH (09:48)
[2023-10-10] MEDS: AMIODARONE HCL 200 MG TAB PO SCH (09:48)
[2023-10-10] MEDS: ENOXAPARIN SOD 30 MG/0.3 ML SYRINGE SC SCH (09:49)
[2023-10-10] MEDS: SILVER SULFADIAZINE 1 % TOPICAL CREAM 50GM TOP SCH (09:49)
[2023-10-10] MEDS: FUROSEMIDE 20 MG TAB PO SCH (10:00)
[2023-10-10] MEDS ORDERED: AMIO200T33 PO (10:25)
[2023-10-10] MEDS ORDERED: FUR20T PO (10:25)
[2023-10-10] MEDS ORDERED: TAMS-35 PO (10:30)
== END 2023-10-10 13:36 | disposition home health service (06) | DRG 870 ==
LOC: EDBD 10:39 → ER 10:39 → TELE 16:03 → ICU WEST 23:00 → TELE-CENTR 09-27 22:20 → CENTRAL 10-08 17:02
PROVIDERS: ADMIT Nurse Practitioner Family; ATTEND Internal Medicine
PROC: 5A1955Z Respiratory Ventilation, Greater than 96 Consecutive Hours (ICD-10-PCS; principal; 2023-09-13)
PROC: 0BH17EZ Insertion of Endotracheal Airway into Trachea, Via Natural or Artificial Opening (ICD-10-PCS; 2023-09-13)
PROC: 05HC33Z Insertion of Infusion Device into Left Basilic Vein, Percutaneous Approach (ICD-10-PCS; 2023-09-24)
PROC: B54NZZA Ultrasonography of Left Upper Extremity Veins, Guidance (ICD-10-PCS; 2023-09-24)
PROC: 05HF33Z Insertion of Infusion Device into Left Cephalic Vein, Percutaneous Approach (ICD-10-PCS; 2023-09-27)
PROC: B54NZZA Ultrasonography of Left Upper Extremity Veins, Guidance (ICD-10-PCS; 2023-09-27)
DX: A41.50 Gram-negative sepsis, unspecified (principal); I21.4 Non-ST elevation (NSTEMI) myocardial infarction; J96.01 Acute respiratory failure with hypoxia; R65.21 Severe sepsis with septic shock; K72.00 Acute and subacute hepatic failure without coma; N17.0 Acute kidney failure with tubular necrosis; I50.43 Acute on chronic combined systolic (congestive) and diastolic (congestive) heart failure; J15.212 Pneumonia due to Methicillin resistant Staphylococcus aureus; N13.6 Pyonephrosis; E87.20 Acidosis, unspecified; I13.0 Hypertensive heart and chronic kidney disease with heart failure and stage 1 through stage 4 chronic kidney disease, or unspecified chronic kidney disease; E44.0 Moderate protein-calorie malnutrition; E87.1 Hypo-osmolality and hyponatremia; D69.59 Other secondary thrombocytopenia; I35.0 Nonrheumatic aortic (valve) stenosis; E11.22 Type 2 diabetes mellitus with diabetic chronic kidney disease; E78.5 Hyperlipidemia, unspecified; N18.9 Chronic kidney disease, unspecified; D64.9 Anemia, unspecified; E86.0 Dehydration; E66.9 Obesity, unspecified; K59.00 Constipation, unspecified; E87.6 Hypokalemia; Z68.26 Body mass index [BMI] 26.0-26.9, adult; Z79.899 Other long term (current) drug therapy
CPT/HCPCS: 36415; 36600; 70450; 71045; 74018; 74176; 76705; 76775; 80048; 80053; 80061; 80074; 80202; 80307; 80320; 81001; 82140; 82306; 82565; 82570; 82607; 82746; 82805; 82962; 83036; 83605; 83735; 83880; 83930; 84100; 84132; 84156; 84300; 84443; 84484; 85007; 85025; 85027; 85610; 85730; 87040; 87070; 87077; 87081; 87086; 87088; 87186; 87205; 92610; 93005; 93306; 94002; 94003; 94640; 97110; 97116; 97163; 97530; C9113; G0378; J0696; J1815; J2250; J2543; J3480; J7060